=== PATIENT | female | born 1935 | race Caucasian/White ===

== ENCOUNTER 2017-01-04 21:41 | Inpatient (IN) | payer MEDICARE, OTHER ==
[~2017-01-04] VITALS: Ht 165.1 cm; Wt 65.3 kg
[2017-01-04] MEDS ORDERED: CEFEPIME 2GM/50 ML (PMX) 50 ML IVPB STA (22:08)
[2017-01-04] MEDS ORDERED: SOD CHLORIDE 0.9% 1,000 ML IV STA ×3 (22:08→23:17)
--- NOTE | 2017-01-04 22:22 | ERA ---
ER Documentation Chief Complaint Date/Time DATE: 01/04/17 TIME: 22:20 Chief Complaint ALOC x3 days per room mate, hx diabetes HPI This is 81-year-old female who is brought in by ambulance from home. The patient currently has a decreased mental status for the past 3 days. She was noted to have a heart rate of 08/09/1939 at home. On questioning the patient says she does not know why she is here but says she does not feel good. She will not elaborate on why she does not feel good. She says she is not in any pain. She is telling me she has not had any nausea vomiting diarrhea or headache or chest pain. She is extremely poor historian just lays there with minimal answering my questions but she is in no acute distress ROS All systems reviewed and are negative except as per history of present illness. Medications Home Meds Unable to Obtain Active Prescriptions or Reported Meds Allergies Allergies: Coded Allergies: No Known Allergy (Unverified , 01/04/17) PMhx/Soc History of Surgery: No Anesthesia Reaction: No Hx Neurological Disorder: No Hx Respiratory Disorders: No Hx Cardiac Disorders: No Hx Psychiatric Problems: No Hx Miscellaneous Medical Probl: Yes (diabetes) Hx Alcohol Use: No Hx Substance Use: No Hx Tobacco Use: Yes (quit) Smoking Status: Former smoker FmHx Family History: No coronary disease Physical Exam Vitals Vital Signs Date Time Temp Pulse Resp B/P Pulse Ox O2 Delivery O2 Flow Rate FiO2 01/05/17 03:45 98.2 124 16 128/67 99 Room Air 01/05/17 01:46 128 16 130/70 98 Room Air 01/05/17 00:15 98.1 123 20 124/67 99 Room Air 01/04/17 21:50 98.7 130 18 140/78 98 Physical Exam Const: Well-developed, well-nourished Head: Atraumatic, normocephalic Eyes: Normal Conjunctiva, PERRLA, EOMI, normal sclera, no nystagmus ENT: Normal External Ears, Nose and Mouth, moist mucus membranes. Neck: Full range of motion. No meningismus, no lymphadenopathy. Resp: Clear to auscultation bilaterally, no wheezing, rhonchi, rales Cardio: Tachycardia heart rate 127 no murmurs, S1 S2 present Abd: Soft, diffuse moderate tenderness most in the lower quadrants, non distended. Normal bowel sounds, no guarding or rebound, no pulsitile abdominal masses or bruits Skin: No petechiae or rashes, no ecchymosis , no maculopapular rash Back: No midline or flank tenderness Ext: No cyanosis, or edema, FROM x 4, normal inspection, neurovascularly intact x 4 Neur: Awake and alert, STR 5/5 x 4, sensation intact x 4, no focal findings, cerebellum intact Psych: Normal Mood and Affect Result Diagram: 01/04/17 2215 01/05/17 0330 Results 24 hrs Laboratory Tests Test 01/04/17 22:15 01/04/17 22:20 01/04/17 23:30 01/05/17 02:16 White Blood Count 11.110^3/ul Red Blood Count 4.5310^6/ul Hemoglobin 14.3g/dl Hematocrit 43.1% Mean Corpuscular Volume 95.1fl Mean Corpuscular Hemoglobin 31.6pg Mean Corpuscular Hemoglobin Concent 33.2g/dl Red Cell Distribution Width 12.3% Platelet Count 41712^3/UL Mean Platelet Volume 10.1fl Neutrophils % 82.2% Lymphocytes % 9.5% Monocytes % 6.8% Eosinophils % 0.0% Basophils % 0.1% Nucleated Red Blood Cells % 0.0/100WBC Neutrophils # 9.110^3/ul Lymphocytes # 1.110^3/ul Monocytes # 0.810^3/ul Eosinophils # 0.010^3/ul Basophils # 0.010^3/ul Nucleated Red Blood Cells # 0.010^3/ul Prothrombin Time 13.5Sec Prothrombin Time Ratio 1.1 INR International Normalized Ratio 1.03 Activated Partial Thromboplast Time 20.0Sec Sodium Level 130mmol/L Potassium Level 3.3mmol/L Chloride Level 103mmol/L Carbon Dioxide Level < 5mmol/L Anion Gap 25 Blood Urea Nitrogen 26mg/dl Creatinine 0.77mg/dl Glucose Level 367mg/dl Calcium Level 8.6mg/dl Total Bilirubin 0.3mg/dl Direct Bilirubin 0.00mg/dl Indirect Bilirubin 0.3mg/dl Aspartate Amino Transf (AST/SGOT) 13IU/L Alanine Aminotransferase (ALT/SGPT) 26IU/L Alkaline Phosphatase 70IU/L Troponin I < 0.012ng/ml Total Protein 7.2g/dl Albumin 4.7g/dl Globulin 2.50g/dl Albumin/Globulin Ratio 1.88 Lipase 23U/L Lactic Acid Level 1.3mmol/L Acetone Level (Chemistry) POSITIVE 1:1 Blood Gas Specimen Source Blood arterial Arterial Blood Date Drawn 01/05/2017 3:20:30 AM Arterial Blood pH (Temp corrected) 7.089 Arterial Blood pCO2 (Temp correct) 17.9mmhg Arterial Blood pO2 (Temp corrected) 108.6mmHG Arterial Blood HCO3 5.3mmol/L Arterial Blood Base Excess -22.6mmol/L Arterial Blood Oxygen Saturation 97.3mmHG Esequiel Test ACCEPTAB Arterial Blood Gas Puncture Site Right Radial Arterial Blood Carboxyhemoglobin 1.7% Arterial Blood Methemoglobin 0.3% Blood Gas A-a O2 Differential 19.7mmHg Oxyhemoglobin Percent 95.4% Total Hemoglobin 14.0g/dl Blood Gas Temperature 37.0C Blood Gas Modality ROOM AIR FiO2 21.0% Blood Gas Critical Value Read Back Kimi MOMIN MD Blood Gas Notified Whom AA Blood Gas Notified Time 01/05/2017 3:32:31 AM Test 01/05/17 03:30 Sodium Level 137mmol/L Potassium Level 3.4mmol/L Chloride Level 114mmol/L Carbon Dioxide Level 7mmol/L Anion Gap 19 Blood Urea Nitrogen 22mg/dl Creatinine 0.60mg/dl Glucose Level 296mg/dl Calcium Level 7.6mg/dl Current Medications Medications (Trade) Dose Ordered Sig/Sunil Route PRN Reason Start Time Stop Time Status Last Admin Dose Admin Sodium Chloride 1,000 ml @ 1,000 mls/hr Q1H STAT IV 01/04/17 22:08 01/04/17 23:07 DC 01/04/17 22:31 Cefepime HCl 50 ml @ 100 mls/hr ONCE STAT IVPB 01/04/17 22:08 01/04/17 22:37 DC 01/04/17 22:32 Vancomycin HCl 250 ml @ 125 mls/hr ONCE ONCE IVPB 01/04/17 22:30 01/05/17 00:29 DC 01/04/17 23:05 Sodium Chloride 1,000 ml @ 1,000 mls/hr Q1H STAT IV 01/04/17 23:17 01/05/17 00:16 DC 01/04/17 23:31 Sodium Chloride 1,000 ml @ 1,000 mls/hr Q1H STAT IV 01/04/17 23:17 01/05/17 00:16 DC 01/04/17 23:32 Sodium Chloride (NS) 100 ml @ ud STK-MED ONCE .ROUTE 01/05/17 00:18 01/05/17 00:19 DC Iohexol (Omnipaque 300mg/ ml) 150 ml STK-MED ONCE .ROUTE 01/05/17 00:18 01/05/17 00:19 DC Procedures/MDM PROCEDURE: CT abdomen and pelvis with intravenous contrast. CLINICAL INDICATION: Pain. TECHNIQUE: CT of the abdomen/pelvis was performed utilizing axial images with reconstructions in sagittal and coronal planes after uneventful administration of 100 cc Omnipaque 300. The administered radiation dose is CTDI 17 mGy, DLP 945 mGy-cm. COMPARISON: No pertinent prior examinations were submitted for comparison. FINDINGS: Visualized Chest: The visualized lung bases are clear. Abdomen: The liver, spleen, pancreas, gallbladder,and adrenal glands are unremarkable. The kidneys are without hydronephrosis. No definite urinary calculi are seen. There is no evidence of bowel obstruction. The appendix is normal. No intra- abdominal free air is seen. Some diverticula are noted along the sigmoid colon without evidence of diverticulitis. There is no evidence of intra-abdominal adenopathy or free fluid. A few scattered atherosclerotic calcifications are noted in the aorta and its branches. There is some motion artifact which limits evaluation of the mid abdomen. Pelvis: The urinary bladder is markedly distended. The uterus and ovaries are without enlargement. There is no pelvic adenopathy or free fluid. Osseous structures: Unremarkable. IMPRESSION: No acute findings. RPTAT: HIKT .Seven José MD, MD Date Time Electronically viewed and signed by .Seven José MD, on 01/05/2017 01:59 .T/ CC: МАРИЯ MOMIN DO PROCEDURE: Chest. CLINICAL INDICATION: Chest pain. TECHNIQUE: Single frontal view of the chest was obtained. COMPARISON: None. FINDINGS: The cardiac silhouette is magnified. The aortic arch is calcified. There is no focal consolidation, vascular congestion or pleural effusion. There is no pneumothorax. IMPRESSION: No evidence for active cardiopulmonary disease. Aortic atherosclerosis. .Mariano Peterson MD, Date Time Electronically viewed and signed by .Mariano Peterson MD, MD on 01/04/2017 23:20 .T/ CC: МАРИЯ MOMIN DO The patient is very acidotic with a CO2 of less than 5. Her acetone is 1-1 which is small. Lactic acid is normal at 1.3. Will repeat the BMP and get an ABG because does not make sense having a CO2 of less than 5 with a lactic acid of 1.3 Repeat shows a CO2 of 7. ABGs pH 7.089. Patient likely has DKA only treat accordingly with insulin drip and DKA protocol. We will admit to the ICU I spoke with Dr. Potter EKG: Rate/Rhythm: Sinus tachycardia heart rate 121 with a bifascicular block QRS, ST, QT: NORMAL ME, QRS, QT] Impression: Abnormal EKG: Rate/Rhythm: [Normal Sinus Rhythm,NL intervals] QRS, ST, QT: NORMAL ME, QRS, QT] Impression: [NORMAL EKG] Critical Care Time: 30 minutes Treatments/Evaluations: Close monitoring and treatment of unstable vital signs, cardiorespiratory, and neurologic status, while maintaining tight balance of fluid, respiratory, and cardiac interventions. This time includes discussing the case with the patient and the patient's family. This time does not include all procedures stated elsewhere in this record. This time also includes reviewing old records, labs and radiological studies. This time includes examining and re-examining the patient. Additionally, this time also includes arranging care with admitting and consulting physicians. Departure Diagnosis: Primary Impression: DKA (diabetic ketoacidoses) Qualified Code: E13.10 - Diabetic ketoacidosis without coma associated with other specified diabetes mellitus Condition: МАРИЯ Willis DO Jan 04, 2017 22:22
[2017-01-04] MEDS ORDERED: VANCOMYCIN 1 GM (PMX) 250 ML IVPB ONE (22:30)
[2017-01-04 22:37] LABS: ADD SCAN DIFF NO
[2017-01-04 22:56] LABS: BASOPHILS % 0.1 % (0.0-2.0); HEMATOCRIT 43.1 % (37.0-47.0); HEMOGLOBIN 14.3 g/dl (12.0-16.0); LYMPHOCYTES # 1.1 10^3/ul (0.8-2.9); LYMPHOCYTES % 9.5 % (15.0-51.0); MEAN CORPUSCULAR HEMOGLOBIN 31.6 pg (29.0-33.0); MEAN CORPUSCULAR HGB CONC 33.2 g/dl (32.0-37.0); MEAN CORPUSCULAR VOLUME 95.1 fl (82.0-101.0); MEAN PLATELET VOLUME 10.1 fl (7.4-10.4); MONOCYTE # 0.8 10^3/ul (0.3-0.9); MONOCYTES % 6.8 % (0.0-11.0); NEUTROPHIL # 9.1 10^3/ul (1.6-7.5); NEUTROPHILS % 82.2 % (39.0-77.0); PLATELET COUNT 250 10^3/UL (140-415); RED BLOOD COUNT 4.53 10^6/ul (4.20-5.40); RED CELL DISTRIBUTION WIDTH 12.3 % (11.5-14.5); WHITE BLOOD COUNT 11.1 10^3/ul (4.8-10.8)
[2017-01-04 23:01] LABS: INR 1.03; PROTIME 13.5 Sec (12.2-14.2); PT RATIO 1.1
[2017-01-04 23:04] LABS: ALANINE AMINOTRANSFERASE 26 IU/L (13-69); ALBUMIN 4.7 g/dl (3.3-4.9); ALBUMIN/GLOBULIN RATIO 1.88; ALKALINE PHOSPHATASE 70 IU/L (42-121); ASPARTATE AMINO TRANSFERASE 13 IU/L (15-46); BILIRUBIN,INDIRECT 0.3 mg/dl (0-1.1); BILIRUBIN,TOTAL 0.3 mg/dl (0.2-1.3); BLOOD UREA NITROGEN 26 mg/dl (7-20); CALCIUM 8.6 mg/dl (8.4-10.2); CHLORIDE 103 mmol/L (97-110); CREATININE 0.77 mg/dl (0.44-1.00); GLUCOSE 367 mg/dl (70-220); POTASSIUM 3.3 mmol/L (3.5-5.1); SODIUM 130 mmol/L (135-144); TOTAL PROTEIN 7.2 g/dl (6.1-8.1)
[2017-01-04 23:12] LABS: ANION GAP 25 (8-16)
[2017-01-04 23:15] LABS: CARBON DIOXIDE < 5 mmol/L (21-31)
[2017-01-04 23:16] LABS: TROPONIN-I < 0.012 ng/ml (0.00-0.12)
--- NOTE | 2017-01-04 23:20 | RADRPT ---
PROCEDURE: Chest. CLINICAL INDICATION: Chest pain. TECHNIQUE: Single frontal view of the chest was obtained. COMPARISON: None. FINDINGS: The cardiac silhouette is magnified. The aortic arch is calcified. There is no focal consolidation , vascular congestion or pleural effusion. There is no pneumothorax. IMPRESSION: No evidence for active cardiopulmonary disease. Aortic atherosclerosis. .Mariano Peterson MD, MD Date Time Electronically viewed and signed by .Mariano Peterson MD, on 01/04/2017 23:20 .T/
[2017-01-05] VITALS (15 sets, daily range): BP systolic 118–163; BP diastolic 62–105; PULSE 90–120; RESP 14–30; TEMP 98.4; Ht 165.1 cm; Wt 65.3 kg
[2017-01-05] MEDS ORDERED: IOHEXOL 300MG/ML 150 ML BTL ONE (00:18)
[2017-01-05] MEDS ORDERED: SOD CHLORIDE 0.9% 100 ML ONE (00:18)
--- NOTE | 2017-01-05 01:59 | RADRPT ---
PROCEDURE: CT abdomen and pelvis with intravenous contrast. CLINICAL INDICATION: Pain. TECHNIQUE: CT of the abdomen/pelvis was performed utilizing axial images with reconstructions in s agittal and coronal planes after uneventful administration of 100 cc Omnipaque 300. The administered radiation dose is CTDI 17 mGy, DLP 945 mGy-cm. COMPARISON: No pertinent prior examinations were submitted for comparison. FINDINGS: Visualized Chest: The visualized lung bases are clear. Abdomen: The liver, spleen, pancreas, gallbladder,and adrenal glands are unremarkable. The kidneys are without hydronephrosis. No definite urinary calculi are seen. There is no evidence of bowel obstruction. The appendix is normal. No intra-abdominal free air is seen. Some diverticula are noted along the sigmoid colon without evidence of diverticulitis. There is no evidence of intra-abdominal adenopathy or free fluid. A few scattered atherosclerotic c alcifications are noted in the aorta and its branches. There is some motion artifact which limits evaluation of the mid abdomen. Pelvis: The urinary bladder is markedly distended. The uterus and ovaries are without enlargement. There i s no pelvic adenopathy or free fluid. Osseous structures: Unremarkable. IMPRESSION: No acute findings. RPTAT: HIKT .Seven José MD, MD Date Time Electronically viewed and signed by .Seven José MD, MD on 01/05/2017 01:59 .T/
[2017-01-05 03:33] LABS: AADO2 Arterial 19.7 mmHg (7.0-24.0); Allen Test ACCEPTAB; Arterial Base Excess -22.6 mmol/L (-3.0-3); Arterial COHb 1.7 % (0.0-3.0); Arterial Fraction of Oxyhgb 95.4 % (93.0-99.0); Arterial HCO3 5.3 mmol/L (22.0-26.0); Arterial MetHb 0.3 % (0.0-1.5); MODE ROOM AIR
[2017-01-05 04:05] LABS: CALCIUM 7.6 mg/dl (8.4-10.2); CREATININE 0.6 mg/dl (0.44-1.00); POTASSIUM 3.4 mmol/L (3.5-5.1)
[2017-01-05] MEDS ORDERED: SOD CHLORIDE 0.9% 1,000 ML IV SCH (04:29)
[2017-01-05] MEDS ORDERED: DEXTROSE 50% 50 ML SYRINGE IV PRN ×6 (04:30→19:30)
[2017-01-05] MEDS ORDERED: INSULIN HUMAN REGULAR 100 UNIT in SOD CHLORIDE 0.9% 99 ML IV SCH ×3 (04:30→20:00)
[2017-01-05] MEDS ORDERED: ONDANSETRON 4 MG INJ IV PRN (04:30)
--- NOTE | 2017-01-05 04:57 | HP ---
Date/Time of Note Date/Time of Note DATE: 01/05/17 TIME: 04:43 Assessment/Plan VTE Prophylaxis VTE Prophylaxis Intervention: SCD's Assessment/Plan Chief Complaint/Hosp Course This is a 81 year old female being admitted to the ICU floor for: #1: Encephalopathy: metabolic vs. neurologic. Likely metabolic. Unable to obtain patient's history at this time secondary to patient's clinical status. Based on labs patient appears to be in possible DKA. Will treat for DKA. Received IV abx in the ED. Currently afebrile and no source of infection identified. Mild leukocytosis of 11. Will hold further abx for now and await blood and urine cultures. Check urinalysis and Urine drug screen. #2 Suspected DKA: Initial bicarb of 5 with repeat of 7. ABG pH 7.0/ PC02 17/ [id number]/HCOS 5. Glucose in the 300s. Will start patient on DKA protocol with IV fluids, insulin drip, and electrolyte repletion. Check a1c. Consult endocrine. #3Dvt and gi prophylaxis: scds, protonix. #4 social status: will consult social work to help with obtaining next of kin/ family contacts information and patient's medical information. Further treatment strategy will be implemented as per the clinical course. Problems: HPI/ROS Admit Date/Time Admit Date/Time Hx of Present Illness chief complaint: "feeling weak" This is 81-year-old female who is brought in by ambulance from home. The patient currently has a decreased mental status for the past 3 days. She was noted to by tachycardic at home. On questioning the patient says she does not know why she is here but says she does not feel good. She will not elaborate on why she does not feel good. She says she is not in any pain. She told the ED physician she has not had any nausea vomiting diarrhea or headache or chest pain. As per the ED physcian, she is a extremely poor historian just lays there with minimal answering my questions but she is in no acute distress allergies: nkda meds: unknown ROS Patient is a very poor historian. She just reports that she is tired. She denies chest pain, shortness of breath, abdominal pain, however she is somnolent and unable to give an accurate ROS. PMH/Family/Social Past Medical History unable to obtain secondary to patient's somnolence and clinical status Past Surgical History unable to obtain secondary to patient's somnolence and clinical status Family History Significant Family History: other (unable to obtain secondary to patient's somnolence and clinical status) Social History unable to obtain secondary to patient's somnolence and clinical status Smoking Status: Unknown if ever smoked Exam/Review of Systems Vital Signs Vitals Vital Signs Date Time Temp Pulse Resp B/P Pulse Ox O2 Delivery O2 Flow Rate FiO2 01/05/17 03:45 98.2 124 16 128/67 99 Room Air Exam Exam General: Patient is lying in bed somnolent but arousable. Patient is a poor historian HEENT: Atraumatic, normocephalic. The pupils are equal, round and reactive. Extraocular motor are intact, dry mucous membranes Neck: Supple with full range of motion. No rigidity or meningismus Chest: Nontender Lungs: Clear to auscultation bilaterally no crackles rales or wheezing Heart: Normal S1-S2, Regular rhythm and rate. No murmur, S3, or S4 no appreciable murmur Abdomen: Soft , nontender, nondistended , bowel sounds are present. No guarding no rebound tenderness , No masses or organomegaly. No costovertebral temporal angle mass Extremities: Normal to inspection, no edema no cyanosis Neurologic: Somnolent but arousable, unable to provide a proper history. Additional Comments PROCEDURE: CT abdomen and pelvis with intravenous contrast. CLINICAL INDICATION: Pain. TECHNIQUE: CT of the abdomen/pelvis was performed utilizing axial images with reconstructions in sagittal and coronal planes after uneventful administration of 100 cc Omnipaque 300. The administered radiation dose is CTDI 17 mGy, DLP 945 mGy-cm. COMPARISON: No pertinent prior examinations were submitted for comparison. FINDINGS: Visualized Chest: The visualized lung bases are clear. Abdomen: The liver, spleen, pancreas, gallbladder,and adrenal glands are unremarkable. The kidneys are without hydronephrosis. No definite urinary calculi are seen. There is no evidence of bowel obstruction. The appendix is normal. No intra- abdominal free air is seen. Some diverticula are noted along the sigmoid colon without evidence of diverticulitis. There is no evidence of intra-abdominal adenopathy or free fluid. A few scattered atherosclerotic calcifications are noted in the aorta and its branches. There is some motion artifact which limits evaluation of the mid abdomen. Pelvis: The urinary bladder is markedly distended. The uterus and ovaries are without enlargement. There is no pelvic adenopathy or free fluid. Osseous structures: Unremarkable. IMPRESSION: No acute findings. RPTAT: HIKT .Seven José MD, Date Time Electronically viewed and signed by .Seven José MD, on 01/05/2017 01:59 .T/ CC: МАРИЯ MOMIN DO PROCEDURE: Chest. CLINICAL INDICATION: Chest pain. TECHNIQUE: Single frontal view of the chest was obtained. COMPARISON: None. FINDINGS: The cardiac silhouette is magnified. The aortic arch is calcified. There is no focal consolidation, vascular congestion or pleural effusion. There is no pneumothorax. IMPRESSION: No evidence for active cardiopulmonary disease. Aortic atherosclerosis. .Mariano Peterson MD, MD Date Time Electronically viewed and signed by .Mariano Peterson MD, on 01/04/2017 23:20 .T/ CC: МАРИЯ MOMIN DO Labs Result Diagram: 01/04/17 2215 01/05/17 0330 Medications Medications Current Medications Insulin Human Regular 100 unit/ Sodium Chloride 100 ml @ 6.64 mls/hr TITRATE IV ; Start 01/05/17 at 04:30 Sodium Chloride (NS) 1,000 ml @ 125 mls/hr Q8H IV ; Start 01/05/17 at 04:29; Status UNV Ondansetron HCl (Zofran Inj) 4 mg Q6H PRN IV NAUSEA AND/OR VOMITING; Start at 04:30; Status UNV Dextrose (D50w Syringe) 50 ml Q15M PRN IV For BS 50 or less; Start 01/05/17 at 04:30; Status UNV Dextrose 25 ml 25 ml Q15M PRN IV BS between 50-70; Start 01/05/17 at 04:30; Status UNV Potassium Chloride/Sodium Chloride (KCl/NS) 1,010 ml @ 125 mls/hr Q8H5M IV ; Start 01/05/17 at 06:29; Stop 01/05/17 at 08:28; Status UNV Diagnostic Test (Pha) (Accu-Chek) 1 ea Q1H XX ; Start 01/05/17 at 04:30; Status UNV Insulin Glargine (Lantus) 10 unit QHS SC ; Start 01/05/17 at 21:00; Status UNV GREGORIO ESCOBAR Jan 05, 2017 04:55
[2017-01-05] MEDS: ACCU-CHEK XX SCH ×20 (05:17→23:30)
[2017-01-05 06:00] LABS: ADD UMIC YES; UR ASCORBIC ACID NEGATIVE (NEGATIVE); UR BILIRUBIN (Dip) NEGATIVE (NEGATIVE); UR BLOOD (Dip) 2+ mg/dL (NEGATIVE); UR CLARITY SLIGHTLY CLOUDY (CLEAR); UR COLOR YELLOW (YELLOW); UR GLUCOSE (Dip) 3+ mg/dL (NEGATIVE); UR KETONES (Dip) 2+ mg/dL (NEGATIVE); UR LEUKOCYTE ESTERASE (Dip) NEGATIVE Leu/ul (NEGATIVE); UR NITRITE (Dip) NEGATIVE (NEGATIVE); UR RBC 7 /HPF (0-5); UR SPECIFIC GRAVITY (Dip) 1.021 (1.003-1.030); UR TOTAL PROTEIN (Dip) 1+ mg/dl (NEGATIVE); UR UROBILINOGEN (Dip) NEGATIVE (NEGATIVE)
[2017-01-05] MEDS: INSULIN HUMAN REGULAR 100 UNIT in SOD CHLORIDE 0.9% 99 ML IV SCH ×2 (06:02→17:37)
[2017-01-05 06:14] LABS: PHOSPHORUS 2.2 mg/dl (2.5-4.9)
[2017-01-05 06:27] LABS: BARBITURATES Negative (NEGATIVE); BENZODIAZEPINES Negative (NEGATIVE); CANNABINOIDS Negative (NEGATIVE); COCAINE Negative (NEGATIVE); OPIATES Negative (NEGATIVE)
[2017-01-05] MEDS ORDERED: POTASSIUM CHLORIDE 20 MEQ in SOD CHLORIDE 0.9% 1,000 ML IV SCH (06:29)
[2017-01-05] MEDS ORDERED: GLUCOSE GEL 15 GRAM TUBE BUCCAL PRN (06:30)
[2017-01-05] MEDS ORDERED: GLUCOSE GEL 15 GRAM TUBE PO PRN ×2 (06:30)
[2017-01-05] MEDS ORDERED: NS + KCL 20 MEQ 1,000 ML IV SCH (06:30)
[2017-01-05] MEDS ORDERED: GLUCAGON 1 MG INJ IM PRN (06:30)
[2017-01-05] MEDS: SOD CHLORIDE 0.9% 1,000 ML IV SCH ×2 (07:49→16:00)
[2017-01-05 07:59] LABS: CALCIUM 8.3 mg/dl (8.4-10.2); CREATININE 0.61 mg/dl (0.44-1.00); POTASSIUM 4.7 mmol/L (3.5-5.1)
[2017-01-05] MEDS: DEXTROSE 5%-0.45% NACL 1,000 ML IV SCH ×2 (09:07→17:18)
[2017-01-05 12:30] LABS: CALCIUM 8.5 mg/dl (8.4-10.2); CREATININE 0.53 mg/dl (0.44-1.00)
[2017-01-05 12:39] LABS: POTASSIUM 2.8 mmol/L (3.5-5.1)
[2017-01-05] MEDS ORDERED: POTASSIUM CHLORIDE 250 ML IVPB SCH (13:00)
--- NOTE | 2017-01-05 14:28 | CONS ---
Date/Time of Note Date/Time of Note DATE: 01/05/17 TIME: 14:24 Assessment/Plan Assessment/Plan Problems: (1) Dehydration Status: Acute Comment: She has been partially rehydrated. Getting give her some more fluids especially lactated Ringer's to help avoid hyperchloremic metabolic acidosis. She is receiving dextrose with the IV insulin infusion which should help. As she gets more awake we should be able to gather more information will have to re -interviewer completely tomorrow. (2) DKA (diabetic ketoacidoses) Status: Acute Comment: This is acute DKA. Somewhat unusual patient of this age and looks like it is can be secondary cause. She has been pancultured as of this time is on antibiotics appropriately. Additionally after check for cardiac enzymes Qualifiers: Qualified Code: E13.10 - Diabetic ketoacidosis without coma associated with other specified diabetes mellitus (3) Encephalopathy acute Status: Acute Comment: Workup for reversible causes Consultation Date/Type/Reason Admit Date/Time 01/05/2017 Date of Consultation: Jan 05, 2017 Type of Consultation: Endocrinology Reason for Consultation DKA Referring Provider: WAN YI Hx of Present Illness 81-year-old single female who lives with roommates reportedly. Patient been not feeling well and had decrease in mental status over 3 days. She is brought in by [facility] to the emergency room. Her ability to give information is extremely limited. Patient is in severe acidosis with an anion gap acidosis and DKA. The patient does report a 10 year history of diabetes. She is unable to state who her physician is what her medications are. She did identify her pharmacy as [facility] however that institution is out of business and there is no forwarding number. 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 Exam/Review of Systems Vital Signs Vitals Vital Signs Date Time Temp Pulse Resp B/P Pulse Ox O2 Delivery O2 Flow Rate FiO2 01/05/17 14:00 17 129/83 99 Room Air 01/05/17 13:00 101 01/05/17 12:15 97.6 Intake and Output 01/04/17 01/04/17 01/05/17 15:00 23:00 07:00 Output Total 1500 ml Balance -1500 ml Exam Drowsy female with very dry mucous membranes Head: atraumatic, normocephalic Eyes: EOMI, nl conjunctiva, nl lids, nl sclera ENMT: nl external ears & nose, other (Very dry mucous minimal) Neck: non-tender, supple Respiratory: clear to auscultation, normal air movement Cardiovascular: nl pulses, regular rate and rhythm Gastrointestinal: nl liver, spleen, non-tender, soft Extremities: normal pulses Skin: other (Dry with tenting) Results Result Diagram: 01/04/17 2215 01/05/17 1150 Results 24 hrs Laboratory Tests Test 01/04/17 22:15 01/04/17 22:20 01/04/17 23:30 01/05/17 02:16 White Blood Count 11.1 H Red Blood Count 4.53 Hemoglobin 14.3 Hematocrit 43.1 Mean Corpuscular Volume 95.1 Mean Corpuscular Hemoglobin 31.6 Mean Corpuscular Hemoglobin Concent 33.2 Red Cell Distribution Width 12.3 Platelet Count 250 Mean Platelet Volume 10.1 Neutrophils % 82.2 H Lymphocytes % 9.5 L Monocytes % 6.8 Eosinophils % 0.0 Basophils % 0.1 Nucleated Red Blood Cells % 0.0 Neutrophils # 9.1 H Lymphocytes # 1.1 Monocytes # 0.8 Eosinophils # 0.0 Basophils # 0.0 Nucleated Red Blood Cells # 0.0 Prothrombin Time 13.5 Prothrombin Time Ratio 1.1 INR International Normalized Ratio 1.03 Activated Partial Thromboplast Time 20.0 L Sodium Level 130 L Potassium Level 3.3 L Chloride Level 103 Carbon Dioxide Level < 5 *L Anion Gap 25 H Blood Urea Nitrogen 26 H Creatinine 0.77 Glucose Level 367 H Calcium Level 8.6 Total Bilirubin 0.3 Direct Bilirubin 0.00 Indirect Bilirubin 0.3 Aspartate Amino Transf (AST/SGOT) 13 L Alanine Aminotransferase (ALT/SGPT) 26 Alkaline Phosphatase 70 Troponin I < 0.012 Total Protein 7.2 Albumin 4.7 Globulin 2.50 Albumin/Globulin Ratio 1.88 Lipase 23 Lactic Acid Level 1.3 Acetone Level (Chemistry) POSITIVE 1:1 H Blood Gas Specimen Source Blood arterial Arterial Blood Date Drawn 01/05/2017 3:20:30 AM Arterial Blood pH (Temp corrected) 7.089 *L Arterial Blood pCO2 (Temp correct) 17.9 L Arterial Blood pO2 (Temp corrected) 108.6 H Arterial Blood HCO3 5.3 *L Arterial Blood Base Excess -22.6 L Arterial Blood Oxygen Saturation 97.3 Esequiel Test ACCEPTAB Arterial Blood Gas Puncture Site Right Radial Arterial Blood Carboxyhemoglobin 1.7 Arterial Blood Methemoglobin 0.3 Blood Gas A-a O2 Differential 19.7 Oxyhemoglobin Percent 95.4 Total Hemoglobin 14.0 Blood Gas Temperature 37.0 Blood Gas Modality ROOM AIR FiO2 21.0 Blood Gas Critical Value Read Back Kimi MOMIN MD Blood Gas Notified Whom AA Blood Gas Notified Time 01/05/2017 3:32:31 AM Test 01/05/17 03:30 01/05/17 05:16 01/05/17 05:20 01/05/17 07:00 Sodium Level 137 138 Potassium Level 3.4 L 4.7 Chloride Level 114 H 116 H Carbon Dioxide Level 7 *L 6 *L Anion Gap 19 H 21 H Blood Urea Nitrogen 22 H 21 H Creatinine 0.60 0.61 Glucose Level 296 H 284 H Fasting Glucose 296 H Calcium Level 7.6 L 8.3 L Phosphorus Level 2.2 L Bedside Glucose 286 H Urine Color YELLOW Urine Clarity SLIGHTLY CLOUDY A Urine pH 5.0 Urine Specific Lorraine 1.021 Urine Ketones 2+ H Urine Nitrite NEGATIVE Urine Bilirubin NEGATIVE Urine Urobilinogen NEGATIVE Urine Leukocyte Esterase NEGATIVE Urine Microscopic RBC 7 H Urine Microscopic WBC 1 Urine Hemoglobin 2+ H Urine Glucose 3+ H Urine Total Protein 1+ H Urine Opiates Screen Negative Urine Barbiturates Negative Urine Amphetamines Screen Negative Urine Benzodiazepines Screen Negative Urine Cocaine Screen Negative Urine Cannabinoids Negative Hemoglobin A1c 10.6 H Lactic Acid Level 1.4 Test 01/05/17 07:04 01/05/17 07:58 01/05/17 08:57 01/05/17 09:56 Bedside Glucose 305 H 229 H 202 181 Test 01/05/17 10:55 01/05/17 11:50 01/05/17 12:35 01/05/17 13:42 Bedside Glucose 235 H 211 217 190 Sodium Level 141 Potassium Level 2.8 *L Chloride Level 118 H Carbon Dioxide Level 10 L Anion Gap 16 Blood Urea Nitrogen 21 H Creatinine 0.53 Glucose Level 234 H Calcium Level 8.5 Medications Medications Current Medications Ondansetron HCl (Zofran Inj) 4 mg Q6H PRN IV NAUSEA AND/OR VOMITING; Start at 04:30 Dextrose (D50w Syringe) 50 ml Q15M PRN IV For BS 50 or less; Start 01/05/17 at 04:30 Dextrose (D50w Syringe) 25 ml Q15M PRN IV BS between 50-70; Start 01/05/17 at 04:30 Diagnostic Test (Pha) (Accu-Chek) 1 ea Q1H XX Last administered on 01/05/17 12 :01; Admin Dose 1 EA; Start 01/05/17 at 04:30 Insulin Glargine (Lantus) 10 unit QHS SC ; Start 01/05/17 at 21:00 Miscellaneous Information 1 ea NOTE XX ; Start 01/05/17 at 06:30 Glucose (Glutose) 15 gm Q15M PRN PO DECREASED GLUCOSE; Start 01/05/17 at 06:30 Glucose (Glutose) 22.5 gm Q15M PRN PO DECREASED GLUCOSE; Start 01/05/17 at 06: 30 Dextrose (D50w Syringe) 25 ml Q15M PRN IV DECREASED GLUCOSE; Start 01/05/17 at 06:30 Dextrose (D50w Syringe) 50 ml Q15M PRN IV DECREASED GLUCOSE; Start 01/05/17 at 06:30 Glucagon (Glucagen) 1 mg Q15M PRN IM DECREASED GLUCOSE; Start 01/05/17 at 06:30 Glucose 15 gm 15 gm Q15M PRN BUCCAL DECREASED GLUCOSE; Start 01/05/17 at 06:30 Sodium Chloride 1,000 ml @ 125 mls/hr Q8H IV Last administered on 01/05/17 07 :49; Admin Dose 125 MLS/HR; Start 01/05/17 at 08:00 Dextrose/Sodium Chloride 1,000 ml @ 125 mls/hr Q8H IV Last administered on 09:07; Admin Dose 125 MLS/HR; Start 01/05/17 at 09:30 Potassium Chloride (KCl 40 MEQ/250 ML NS) 250 ml @ 62.5 mls/hr ONCE IVPB Last administered on 01/05/17t 13:46; Admin Dose 62.5 MLS/HR; Start 01/05/17 at 13:00 ; Stop 01/05/17 at 16:59 Potassium Chloride (Klor-Con 20) 40 meq TID PO ; Start 01/05/17 at 21:00; Stop 01/06/17 at 20:59; Status NELSON NORRIS MD Jan 05, 2017 14:28
[2017-01-05] MEDS ORDERED: CYANOCOBALAMIN 1000 MCG INJ IM ONE (14:30)
[2017-01-05] MEDS ORDERED: LACTATED RINGER'S 500 ML IV ONE (14:30)
[2017-01-05] MEDS: THIAMINE 100 MG TAB PO SCH (14:54)
[2017-01-05 15:16] LABS: TROPONIN-I 0.016 ng/ml (0.00-0.12)
[2017-01-05 15:31] LABS: TROPONIN-I < 0.012 ng/ml (0.00-0.12)
[2017-01-05 18:06] LABS: CALCIUM 8.5 mg/dl (8.4-10.2); CREATININE 0.45 mg/dl (0.44-1.00)
[2017-01-05 18:10] LABS: POTASSIUM 2.4 mmol/L (3.5-5.1)
[2017-01-05] MEDS: POTASSIUM CHLORIDE 250 ML IVPB SCH ×2 (19:05→22:46)
[2017-01-05] MEDS ORDERED: ACCU-CHEK XX SCH (19:30)
[2017-01-05] MEDS ORDERED: INSULIN HUMAN REGULAR 100 UNIT in SOD CHLORIDE 0.9% 99 ML IV STA (19:48)
[2017-01-05] MEDS ORDERED: POTASSIUM CHLORIDE (SR) 20 MEQ TAB PO SCH (21:00)
[2017-01-05] MEDS: INSULIN GLARGINE [LANtus] 3 ML PEN SC SCH (21:06)
[2017-01-06] VITALS (30 sets, daily range): BP systolic 120–174; BP diastolic 65–91; PULSE 86–118; RESP 16–26
[2017-01-06] MEDS: DEXTROSE 5%-0.45% NACL 1,000 ML IV SCH (01:19)
[2017-01-06] MEDS: ACCU-CHEK XX SCH ×10 (01:20→13:33)
[2017-01-06 03:24] LABS: CALCIUM 8.7 mg/dl (8.4-10.2); CREATININE 0.42 mg/dl (0.44-1.00); POTASSIUM 3.2 mmol/L (3.5-5.1)
[2017-01-06] MEDS ORDERED: SOD CHLORIDE 0.9% 1,000 ML IV SCH (04:00)
[2017-01-06] MEDS ORDERED: Insulin NOVOLOG SS MILD Algorithm (NPO/TPN/ENTERAL FEEDS) SC SCH (05:00)
[2017-01-06] MEDS ORDERED: POTASSIUM CHLORIDE 250 ML IVPB ONE (05:00)
[2017-01-06] MEDS ORDERED: INSULIN ASPART [NOVOLOG] 3 ML PEN SC SCH (05:00)
[2017-01-06] MEDS ORDERED: DEXTROSE 50% 50 ML SYRINGE IV PRN ×2 (06:30)
[2017-01-06] MEDS ORDERED: INSULIN HUMAN REGULAR 100 UNIT in SOD CHLORIDE 0.9% 99 ML IV SCH (06:30)
[2017-01-06 06:33] LABS: BASOPHILS % 0.1 % (0.0-2.0); EOSINOPHILS % 0.1 % (0.0-7.0); HEMATOCRIT 34.7 % (37.0-47.0); HEMOGLOBIN 12.4 g/dl (12.0-16.0); LYMPHOCYTES # 1.3 10^3/ul (0.8-2.9); LYMPHOCYTES % 9.8 % (15.0-51.0); MEAN CORPUSCULAR HEMOGLOBIN 31.7 pg (29.0-33.0); MEAN CORPUSCULAR HGB CONC 35.7 g/dl (32.0-37.0); MEAN CORPUSCULAR VOLUME 88.7 fl (82.0-101.0); MEAN PLATELET VOLUME 9.4 fl (7.4-10.4); MONOCYTE # 1.2 10^3/ul (0.3-0.9); NEUTROPHIL # 10.4 10^3/ul (1.6-7.5); NEUTROPHILS % 80.5 % (39.0-77.0); PLATELET COUNT 190 10^3/UL (140-415); RED BLOOD COUNT 3.91 10^6/ul (4.20-5.40); RED CELL DISTRIBUTION WIDTH 12.5 % (11.5-14.5); WHITE BLOOD COUNT 12.9 10^3/ul (4.8-10.8)
[2017-01-06 06:50] LABS: ALBUMIN 3.1 g/dl (3.3-4.9); ALBUMIN/GLOBULIN RATIO 1.4; BILIRUBIN,INDIRECT 0.7 mg/dl (0-1.1); BILIRUBIN,TOTAL 0.7 mg/dl (0.2-1.3); CALCIUM 8.5 mg/dl (8.4-10.2); CREATININE 0.43 mg/dl (0.44-1.00); POTASSIUM 3.3 mmol/L (3.5-5.1); TOTAL PROTEIN 5.3 g/dl (6.1-8.1)
[2017-01-06 06:52] LABS: CHOL/HDL RATIO 5.1 RATIO; MAGNESIUM 1.8 mg/dl (1.7-2.5)
[2017-01-06 07:15] LABS: THYROID STIMULATING HORMONE 0.397 MIU/L (0.465-4.680)
[2017-01-06 07:26] LABS: ADD SCAN DIFF NO
[2017-01-06] MEDS: D5W + KCL 20 MEQ 1,000 ML IV SCH ×2 (07:37→16:29)
[2017-01-06] MEDS: THIAMINE 100 MG TAB PO SCH (08:59)
[2017-01-06] MEDS: POTASSIUM CHLORIDE 50 ML IVPB PRN ×2 (09:35→11:54)
[2017-01-06] MEDS ORDERED: hydrALAzine 20 MG INJ IV PRN (10:00)
--- NOTE | 2017-01-06 10:05 | PN ---
Date/Time of Note Date/Time of Note DATE: 01/06/17 TIME: 10:03 Assessment/Plan VTE Prophylaxis VTE Prophylaxis Intervention: SCD's Lines/Catheters IV C[facility]ter Type [facility]from [facility]): Peripheral IV Urinary Cath still in place: Yes Reason Cath still needed: other (indicate) Assessment/Plan Chief Complaint/Hosp Course 1. Diabetic ketoacidosis. On insulin drip. Being followed by endocrinology. Etiology for DKA could be probably secondary to medication noncompliance. Shirley cultures have been negative. No evidence of any underlying infectious process. 2. Diabetes mellitus. Probably type II. Hemoglobin A1c 10.6. Glycemic management as per endocrinology. 3. Acute encephalopathy. Probably toxic metabolic. The patient's mental status have been improving. Monitor. 4. Dyslipidemia. Elevated total cholesterol and suboptimal LDL. Will start the patient on statins. 5. Hypokalemia. Replete. 6. Hypophosphatemia. Replete. 7. Fluids, electrolytes, and nutrition. N.p.o. Continue IV hydration. 8. DVT prophylaxis. Bilateral sequential compression devices. 9. Gastrointestinal prophylaxis. Proton pump inhibitors. 10. Plan. Weaning off insulin drip as per endocrinology. Continue ICU monitoring. Case discussed with Dr. Emmanuel. Critical care time: 35 minutes. Problems: Subjective 24 Hr Interval Summary Free Text/Dictation The patient is more awake and alert today. Patient continues to be forgetful. Remains on insulin drip. Exam/Review of Systems Vital Signs Vitals Vital Signs Date Time Temp Pulse Resp B/P Pulse Ox O2 Delivery O2 Flow Rate FiO2 01/06/17 09:00 95 20 137/85 97 Room Air 01/06/17 08:00 97.9 Intake and Output 01/05/17 01/05/17 01/06/17 15:00 23:00 07:00 Intake Total 797.92 ml 2463.12 ml 817.06 ml Output Total 2375 ml 785 ml 310 ml Balance -1577.08 ml 1678.12 ml 507.06 ml Exam General: Adequately build 81 year-old female lying in bed in no apparent distress. HEENT: Normocephalic, atraumatic. Eyes: Anicteric sclerae, conjunctivae clear. ENT: Nasal septum midline, oral mucosa moist. Neck supple, no JVD noticed. Respiratory: Bilaterally clear breath sounds. No use of accessory muscles of respiration. No adventitious breath sounds. Cardiovascular: S1, S2 heard. No murmurs or gallops. Abdomen: Soft, nontender, and nondistended. Bowel sounds positive in all 4 quadrants. Genitourinary: Deferred. Extremities: No cyanosis, no clubbing, no edema. Peripheral pulses palpable. Neurologic: Cranial nerves II through XII grossly intact. The patient is awake and alert. Oriented 2. Periods of confusion. Skin: Normal skin turgor. No skin rashes. Results Result Diagram: 01/06/1761801/06/17 06 Results 24 hrs Laboratory Tests Test 01/05/17 10:55 01/05/17 11:50 01/05/17 12:35 01/05/17 13:42 Bedside Glucose 235 H 211 217 190 Sodium Level 141 Potassium Level 2.8 *L Chloride Level 118 H Carbon Dioxide Level 10 L Anion Gap 16 Blood Urea Nitrogen 21 H Creatinine 0.53 Glucose Level 234 H Calcium Level 8.5 Test 01/05/17 14:30 01/05/17 14:34 01/05/17 15:34 01/05/17 17:30 Troponin I < 0.012 Vitamin B12 Level > 1000 H Free Thyroxine 1.39 Rapid Plasma Reagin NONREACTIVE Hepatitis B Surface Antigen NEGATIVE Hepatitis C Antibody NEGATIVE Bedside Glucose 211 162 Sodium Level 139 Potassium Level 2.4 *L Chloride Level 116 H Carbon Dioxide Level 15 L Anion Gap 10 # Blood Urea Nitrogen 18 Creatinine 0.45 Glucose Level 156 Calcium Level 8.5 Test 01/05/17 17:35 01/05/17 18:27 01/05/17 19:34 01/05/17 20:42 Bedside Glucose 128 110 124 108 Test 01/05/17 21:03 01/05/17 21:43 01/05/17 22:45 01/05/17 23:41 Bedside Glucose 93 108 121 114 Test 01/06/17 00:42 01/06/17 01:31 01/06/17 02:45 01/06/17 02:47 Bedside Glucose 116 104 107 Sodium Level 141 Potassium Level 3.2 L Chloride Level 120 H Carbon Dioxide Level 16 L Anion Gap 8 Blood Urea Nitrogen 16 Creatinine 0.42 L Glucose Level 116 # Calcium Level 8.7 Test 01/06/17 05:38 01/06/17 06:19 01/06/17 06:35 01/06/17 07:33 Bedside Glucose 186 182 172 White Blood Count 12.9 H Red Blood Count 3.91 L Hemoglobin 12.4 Hematocrit 34.7 L Mean Corpuscular Volume 88.7 Mean Corpuscular Hemoglobin 31.7 Mean Corpuscular Hemoglobin Concent 35.7 Red Cell Distribution Width 12.5 Platelet Count 190 # Mean Platelet Volume 9.4 Neutrophils % 80.5 H Lymphocytes % 9.8 L Monocytes % 9.0 Eosinophils % 0.1 Basophils % 0.1 Nucleated Red Blood Cells % 0.0 Neutrophils # 10.4 H Lymphocytes # 1.3 Monocytes # 1.2 H Eosinophils # 0.0 Basophils # 0.0 Nucleated Red Blood Cells # 0.0 Sodium Level 140 Potassium Level 3.3 L Chloride Level 116 H Carbon Dioxide Level 16 L Anion Gap 11 Blood Urea Nitrogen 15 Creatinine 0.43 L Glucose Level 187 Calcium Level 8.5 Phosphorus Level 0.8 #L Magnesium Level 1.8 Total Bilirubin 0.7 Direct Bilirubin 0.00 Indirect Bilirubin 0.7 Aspartate Amino Transf (AST/SGOT) 17 Alanine Aminotransferase (ALT/SGPT) 23 Alkaline Phosphatase 52 Total Protein 5.3 #L Albumin 3.1 #L Globulin 2.20 Albumin/Globulin Ratio 1.40 Triglycerides Level 148 Cholesterol Level 204 H LDL Cholesterol, Calculated 134 HDL Cholesterol 40 Cholesterol/HDL Ratio 5.1 Thyroid Stimulating Hormone (TSH) 0.397 L Test 01/06/17 08:38 01/06/17 09:38 Bedside Glucose 141 172 Medications Medications Current Medications Ondansetron HCl (Zofran Inj) 4 mg Q6H PRN IV NAUSEA AND/OR VOMITING; Start at 04:30 Insulin Glargine (Lantus) 10 unit QHS SC Last administered on 01/05/17t 21:06; Admin Dose 10 UNIT; Start 01/05/17 at 21:00 Miscellaneous Information 1 ea NOTE XX ; Start 01/05/17 at 06:30 Glucose (Glutose) 15 gm Q15M PRN PO DECREASED GLUCOSE; Start 01/05/17 at 06:30 Glucose (Glutose) 22.5 gm Q15M PRN PO DECREASED GLUCOSE; Start 01/05/17 at 06: 30 Dextrose (D50w Syringe) 25 ml Q15M PRN IV DECREASED GLUCOSE; Start 01/05/17 at 06:30 Dextrose (D50w Syringe) 50 ml Q15M PRN IV DECREASED GLUCOSE; Start 01/05/17 at 06:30 Glucagon (Glucagen) 1 mg Q15M PRN IM DECREASED GLUCOSE; Start 01/05/17 at 06:30 Glucose (Glutose) 15 gm Q15M PRN BUCCAL DECREASED GLUCOSE; Start 01/05/17 at 06 :30 Thiamine HCl 100 mg 100 mg DAILY PO Last administered on 01/06/17 08:59; Admin Dose 100 MG; Start 01/05/17 at 14:30; Stop 01/09/17 at 14:29 Potassium Chloride/Dextrose (D5W + KCl 20 Meq) 1,000 ml @ 100 mls/hr Q10H IV Last administered on 01/06/17 07:37; Admin Dose 100 MLS/HR; Start 01/06/17 at 07:00 Dextrose (D50w Syringe) 50 ml Q15M PRN IV For BS 50 or less; Start 01/06/17 at 06:30 Dextrose (D50w Syringe) 25 ml Q15M PRN IV BS between 50-70; Start 01/06/17 at 06:30 Diagnostic Test (Pha) 1 ea 1 ea Q1H XX Last administered on 01/06/17 09:38; Admin Dose 1 EA; Start 01/06/17 at 06:30 Potassium Phosphate/Sodium Chloride (K Phos (Mm)/NS) 260 ml @ 65 mls/hr ONCE ONCE IVPB ; Start 01/06/17 at 10:00; Stop 01/06/17 at 13:59; Status MINH ZAMORANO NP Jan 06, 2017 10:05
[2017-01-06] MEDS ORDERED: POTASSIUM PHOSPHATE 30 MM in SOD CHLORIDE 0.9% 250 ML IVPB ONE (11:30)
[2017-01-06 12:03] LABS: MICROALBUMIN 4.2 mg/dL
[2017-01-06 13:51] LABS: CALCIUM 8.1 mg/dl (8.4-10.2); CREATININE 0.43 mg/dl (0.44-1.00)
--- NOTE | 2017-01-06 14:06 | CONS ---
Date/Time of Note Date/Time of Note DATE: 01/06/17 TIME: 14:00 Assessment/Plan Assessment/Plan Chief Complaint/Hosp Course 81-year-old single female, information gathered from [facility] as a pharmacy is that her physician is Dr. Rancho Hurley. Her outpatient regimen has recently been switched from nateglinide 120 with each meal 2 Jardiance 10 mg a day. She is also on trazodone 50-200 mg nightly as needed. Problems: (1) Diabetes mellitus type 2 in nonobese Status: Chronic Comment: She is a long-term diabetic. She came in with DKA after having been treated with SGL T2 drug. This is unknown but rare complication of this drug class. As such we should not use this drug class in this individual patient. I will give her low-dose metformin and titrate to effect. She will still be on insulin for the time being although sending her home with insulin may be a little bit adventurous. 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 She lives independently and has roommates. They however are not direct relatives and as such third degree of support has appropriate limitations (3) DKA (diabetic ketoacidoses) Status: Resolved Comment: Resolved. Take the patient off insulin drip get her prepped for coming out of the ICU Qualifiers: Diabetes mellitus type: other specified (including JAIRON) Diabetes mellitus complication detail: without coma Qualified Code: E13.10 - Diabetic ketoacidosis without coma associated with other specified diabetes mellitus Consultation Date/Type/Reason Admit Date/Time Jan 05, 2017 at 04:29 Initial Consult Date 01/05/17 Type of Consultation: Endocrinology Reason for Consultation Diabetes mellitus type 2; DKA. Referring Provider: WAN YI 24 HR Interval Summary Free Text/Dictation Patient is more awake and alert. She has no idea who her doctors are but was able to tell me her pharmacy. [facility] in [place] [place]. Constitutional: no complaints (Denies fevers chills or sweats) Detailed Summary Respiratory: no complaints Cardiovascular: no complaints Gastrointestinal: no complaints Exam/Review of Systems Vital Signs Vitals Vital Signs Date Time Temp Pulse Resp B/P Pulse Ox O2 Delivery O2 Flow Rate FiO2 01/06/17 13:30 95 23 138/70 98 Room Air 01/06/17 12:00 98.3 Intake and Output 01/05/17 01/05/17 01/06/17 15:00 23:00 07:00 Intake Total 797.92 ml 2463.12 ml 817.06 ml Output Total 2375 ml 785 ml 410 ml Balance -1577.08 ml 1678.12 ml 407.06 ml Exam Oriented to person and place not to time Constitutional: alert Neck: non-tender, supple Respiratory: clear to auscultation, normal air movement Cardiovascular: nl pulses, regular rate and rhythm Results Result Diagram: 01/06/17 0619 01/06/17 1325 Results 24 hrs Laboratory Tests Test 01/05/17 14:30 01/05/17 14:34 01/05/17 15:34 01/05/17 17:30 Troponin I < 0.012 Vitamin B12 Level > 1000 H Free Thyroxine 1.39 Rapid Plasma Reagin NONREACTIVE Hepatitis B Surface Antigen NEGATIVE Hepatitis C Antibody NEGATIVE Bedside Glucose 211 162 Sodium Level 139 Potassium Level 2.4 *L Chloride Level 116 H Carbon Dioxide Level 15 L Anion Gap 10 # Blood Urea Nitrogen 18 Creatinine 0.45 Glucose Level 156 Calcium Level 8.5 Test 01/05/17 17:35 01/05/17 18:27 01/05/17 19:34 01/05/17 20:42 Bedside Glucose 128 110 124 108 Test 01/05/17 21:03 01/05/17 21:43 01/05/17 22:45 01/05/17 23:41 Bedside Glucose 93 108 121 114 Test 01/06/17 00:42 01/06/17 01:31 01/06/17 02:45 01/06/17 02:47 Bedside Glucose 116 104 107 Sodium Level 141 Potassium Level 3.2 L Chloride Level 120 H Carbon Dioxide Level 16 L Anion Gap 8 Blood Urea Nitrogen 16 Creatinine 0.42 L Glucose Level 116 # Calcium Level 8.7 Test 01/06/17 05:38 01/06/17 06:19 01/06/17 06:35 01/06/17 07:33 Bedside Glucose 186 182 172 White Blood Count 12.9 H Red Blood Count 3.91 L Hemoglobin 12.4 Hematocrit 34.7 L Mean Corpuscular Volume 88.7 Mean Corpuscular Hemoglobin 31.7 Mean Corpuscular Hemoglobin Concent 35.7 Red Cell Distribution Width 12.5 Platelet Count 190 # Mean Platelet Volume 9.4 Neutrophils % 80.5 H Lymphocytes % 9.8 L Monocytes % 9.0 Eosinophils % 0.1 Basophils % 0.1 Nucleated Red Blood Cells % 0.0 Neutrophils # 10.4 H Lymphocytes # 1.3 Monocytes # 1.2 H Eosinophils # 0.0 Basophils # 0.0 Nucleated Red Blood Cells # 0.0 Sodium Level 140 Potassium Level 3.3 L Chloride Level 116 H Carbon Dioxide Level 16 L Anion Gap 11 Blood Urea Nitrogen 15 Creatinine 0.43 L Glucose Level 187 Calcium Level 8.5 Phosphorus Level 0.8 #L Magnesium Level 1.8 Total Bilirubin 0.7 Direct Bilirubin 0.00 Indirect Bilirubin 0.7 Aspartate Amino Transf (AST/SGOT) 17 Alanine Aminotransferase (ALT/SGPT) 23 Alkaline Phosphatase 52 Total Protein 5.3 #L Albumin 3.1 #L Globulin 2.20 Albumin/Globulin Ratio 1.40 Triglycerides Level 148 Cholesterol Level 204 H LDL Cholesterol, Calculated 134 HDL Cholesterol 40 Cholesterol/HDL Ratio 5.1 Thyroid Stimulating Hormone (TSH) 0.397 L Test 01/06/17 08:38 01/06/17 09:38 01/06/17 10:49 01/06/17 11:44 Bedside Glucose 141 172 125 120 Test 01/06/17 12:02 01/06/17 12:51 01/06/17 13:25 01/06/17 13:28 Bedside Glucose 96 78 152 Sodium Level 130 L Potassium Level 4.0 Chloride Level 108 Carbon Dioxide Level 17 L Anion Gap 9 Blood Urea Nitrogen 13 Creatinine 0.43 L Glucose Level 121 # Calcium Level 8.1 L Medications Medications Current Medications Ondansetron HCl (Zofran Inj) 4 mg Q6H PRN IV NAUSEA AND/OR VOMITING; Start at 04:30 Insulin Glargine (Lantus) 10 unit QHS SC Last administered on 01/05/17t 21:06; Admin Dose 10 UNIT; Start 01/05/17 at 21:00 Miscellaneous Information 1 ea NOTE XX ; Start 01/05/17 at 06:30 Glucose (Glutose) 15 gm Q15M PRN PO DECREASED GLUCOSE; Start 01/05/17 at 06:30 Glucose (Glutose) 22.5 gm Q15M PRN PO DECREASED GLUCOSE; Start 01/05/17 at 06: 30 Dextrose (D50w Syringe) 25 ml Q15M PRN IV DECREASED GLUCOSE; Start 01/05/17 at 06:30 Dextrose (D50w Syringe) 50 ml Q15M PRN IV DECREASED GLUCOSE; Start 01/05/17 at 06:30 Glucagon (Glucagen) 1 mg Q15M PRN IM DECREASED GLUCOSE; Start 01/05/17 at 06:30 Glucose (Glutose) 15 gm Q15M PRN BUCCAL DECREASED GLUCOSE; Start 01/05/17 at 06 :30 Thiamine HCl 100 mg 100 mg DAILY PO Last administered on 01/06/17 08:59; Admin Dose 100 MG; Start 01/05/17 at 14:30; Stop 01/09/17 at 14:29 Potassium Chloride/Dextrose (D5W + KCl 20 Meq) 1,000 ml @ 100 mls/hr Q10H IV Last administered on 01/06/17 07:37; Admin Dose 100 MLS/HR; Start 01/06/17 at 07:00 Dextrose (D50w Syringe) 50 ml Q15M PRN IV For BS 50 or less; Start 01/06/17 at 06:30 Dextrose (D50w Syringe) 25 ml Q15M PRN IV BS between 50-70; Start 01/06/17 at 06:30 Diagnostic Test (Pha) 1 ea 1 ea Q1H XX Last administered on 01/06/17 13:33; Admin Dose 1 EA; Start 01/06/17 at 06:30 Potassium Phosphate/Sodium Chloride (K Phos (Mm)/NS) 260 ml @ 43.333 mls/ hr ONCE ONCE IVPB Last administered on 01/06/17 11:54; Admin Dose 43.333 MLS/HR ; Start 01/06/17 at 11:30; Stop 01/06/17 at 17:29 Hydralazine HCl (Apresoline) 10 mg Q6H PRN IV SBP>160; Start 01/06/17 at 10:00 Pantoprazole (Protonix Iv) 40 mg DAILY@06 IV ; Start 01/07/17 at 06:00 NELSON MALLOY MD Jan 06, 2017 14:05
[2017-01-06] MEDS: INSULIN ASPART [NOVOLOG] 3 ML PEN SC SCH ×2 (17:22→20:32)
[2017-01-06] MEDS ORDERED: metFORMIN 500 MG TAB PO SCH (17:35)
[2017-01-06] MEDS: INSULIN GLARGINE [LANtus] 3 ML PEN SC SCH (20:31)
[2017-01-06] MEDS: ATORVASTATIN 20 MG TAB PO SCH (20:33)
[2017-01-07] VITALS (12 sets, daily range): BP systolic 111–152; BP diastolic 57–81; PULSE 86–120; RESP 18–19
[2017-01-07] MEDS: ACCU-CHEK XX SCH (02:52)
[2017-01-07] MEDS: D5W + KCL 20 MEQ 1,000 ML IV SCH ×2 (03:06→08:51)
[2017-01-07] MEDS: PANTOPRAZOLE 40 MG INJ IV SCH (06:01)
[2017-01-07 07:30] LABS: BASOPHILS % 0.1 % (0.0-2.0); EOSINOPHILS % 0.3 % (0.0-7.0); HEMATOCRIT 34.9 % (37.0-47.0); HEMOGLOBIN 12.2 g/dl (12.0-16.0); LYMPHOCYTES # 1.8 10^3/ul (0.8-2.9); LYMPHOCYTES % 23.9 % (15.0-51.0); MEAN CORPUSCULAR HEMOGLOBIN 31.3 pg (29.0-33.0); MEAN CORPUSCULAR VOLUME 89.5 fl (82.0-101.0); MEAN PLATELET VOLUME 9.8 fl (7.4-10.4); MONOCYTE # 0.8 10^3/ul (0.3-0.9); MONOCYTES % 10.4 % (0.0-11.0); NEUTROPHIL # 4.9 10^3/ul (1.6-7.5); PLATELET COUNT 160 10^3/UL (140-415); RED CELL DISTRIBUTION WIDTH 12.2 % (11.5-14.5); WHITE BLOOD COUNT 7.6 10^3/ul (4.8-10.8)
[2017-01-07 08:03] LABS: MAGNESIUM 1.6 mg/dl (1.7-2.5); PHOSPHORUS 1.5 mg/dl (2.5-4.9)
[2017-01-07 08:04] LABS: ALBUMIN 2.8 g/dl (3.3-4.9); ALBUMIN/GLOBULIN RATIO 1.33; CALCIUM 8.2 mg/dl (8.4-10.2); CREATININE 0.42 mg/dl (0.44-1.00); POTASSIUM 3.5 mmol/L (3.5-5.1); TOTAL PROTEIN 4.9 g/dl (6.1-8.1)
[2017-01-07] MEDS: THIAMINE 100 MG TAB PO SCH (08:48)
[2017-01-07] MEDS: INSULIN ASPART [NOVOLOG] 3 ML PEN SC SCH ×6 (08:51→20:21)
--- NOTE | 2017-01-07 11:57 | PN ---
Date/Time of Note Date/Time of Note DATE: 01/07/17 TIME: 11:55 Assessment/Plan VTE Prophylaxis VTE Prophylaxis Intervention: SCD's Lines/Catheters IV Catheter Type (from [facility]): [facility] Urinary Cath still in place: Yes Reason Cath still needed: other (indicate) Assessment/Plan Chief Complaint/Hosp Course 1. Diabetic ketoacidosis. S/P insulin drip. Being followed by endocrinology. Etiology for DKA could be probably secondary to medication noncompliance. Shirley cultures have been negative. No evidence of any underlying infectious process. 2. Diabetes mellitus. Probably type II. Hemoglobin A1c 10.6. Glycemic management as per endocrinology. 3. Acute encephalopathy. Probably toxic metabolic. The patient's mental status have been improving. Monitor. 4. Dyslipidemia. Elevated total cholesterol and suboptimal LDL. Continue the patient on statins. 5. Hypomagnesemia. Replete. 6. Hypophosphatemia. Replete. 7. Fluids, electrolytes, and nutrition. Carbohydrate controlled diet 8. DVT prophylaxis. Bilateral sequential compression devices. 9. Gastrointestinal prophylaxis. Proton pump inhibitors. 10. Plan. Glycemic management as per endocrinology. Replete phosphorus and magnesium. Obtain physical therapy evaluation. Discontinue Zuluaga catheter. Case discussed with Dr. Emmanuel. Problems: Subjective 24 Hr Interval Summary Free Text/Dictation The patient is awake and alert today. Blood sugars running high Exam/Review of Systems Vital Signs Vitals Vital Signs Date Time Temp Pulse Resp B/P Pulse Ox O2 Delivery O2 Flow Rate FiO2 01/07/17 11:38 98.0 120 18 118/66 98 01/06/17 23:48 Room Air Intake and Output 01/06/17 01/06/17 01/07/17 14:59 22:59 06:59 Intake Total 975.59 ml 720 ml 1050 ml Output Total 800 ml 300 ml 2200 ml Balance 175.59 ml 420 ml -1150 ml Exam General: Adequately build 81 year-old female lying in bed in no apparent distress. HEENT: Normocephalic, atraumatic. Eyes: Anicteric sclerae, conjunctivae clear. ENT: Nasal septum midline, oral mucosa moist. Neck supple, no JVD noticed. Respiratory: Bilaterally clear breath sounds. No use of accessory muscles of respiration. No adventitious breath sounds. Cardiovascular: S1, S2 heard. No murmurs or gallops. Abdomen: Soft, nontender, and nondistended. Bowel sounds positive in all 4 quadrants. Genitourinary: Deferred. Extremities: No cyanosis, no clubbing, no edema. Peripheral pulses palpable. Neurologic: Cranial nerves II through XII grossly intact. The patient is awake and alert. Oriented 3. Skin: Normal skin turgor. No skin rashes. Results Result Diagram: 01/07/17 0715 01/07/17 0715 Results 24 hrs Laboratory Tests Test 01/06/17 12:02 01/06/17 12:51 01/06/17 13:25 01/06/17 13:28 Bedside Glucose 96 78 152 Sodium Level 130 L Potassium Level 4.0 Chloride Level 108 Carbon Dioxide Level 17 L Anion Gap 9 Blood Urea Nitrogen 13 Creatinine 0.43 L Glucose Level 121 # Calcium Level 8.1 L Test 01/06/17 17:20 01/06/17 20:29 01/07/17 01:47 01/07/17 07:15 Bedside Glucose 193 216 244 H White Blood Count 7.6 # Red Blood Count 3.90 L Hemoglobin 12.2 Hematocrit 34.9 L Mean Corpuscular Volume 89.5 Mean Corpuscular Hemoglobin 31.3 Mean Corpuscular Hemoglobin Concent 35.0 Red Cell Distribution Width 12.2 Platelet Count 160 Mean Platelet Volume 9.8 Neutrophils % 65.0 Lymphocytes % 23.9 Monocytes % 10.4 Eosinophils % 0.3 Basophils % 0.1 Nucleated Red Blood Cells % 0.0 Neutrophils # 4.9 Lymphocytes # 1.8 Monocytes # 0.8 Eosinophils # 0.0 Basophils # 0.0 Nucleated Red Blood Cells # 0.0 Sodium Level 131 L Potassium Level 3.5 Chloride Level 100 Carbon Dioxide Level 20 L Anion Gap 15 Blood Urea Nitrogen 11 Creatinine 0.42 L Glucose Level 317 #H Calcium Level 8.2 L Phosphorus Level 1.5 L Magnesium Level 1.6 L Total Bilirubin 1.0 Direct Bilirubin 0.00 Indirect Bilirubin 1.0 Aspartate Amino Transf (AST/SGOT) 19 Alanine Aminotransferase (ALT/SGPT) 29 Alkaline Phosphatase 48 Total Protein 4.9 L Albumin 2.8 L Globulin 2.10 Albumin/Globulin Ratio 1.33 Test 01/07/17 08:39 Bedside Glucose 329 H Medications Medications Current Medications Ondansetron HCl (Zofran Inj) 4 mg Q6H PRN IV NAUSEA AND/OR VOMITING; Start at 04:30 Miscellaneous Information 1 ea NOTE XX ; Start 01/05/17 at 06:30 Glucose (Glutose) 15 gm Q15M PRN PO DECREASED GLUCOSE; Start 01/05/17 at 06:30 Glucose (Glutose) 22.5 gm Q15M PRN PO DECREASED GLUCOSE; Start 01/05/17 at 06: 30 Dextrose (D50w Syringe) 25 ml Q15M PRN IV DECREASED GLUCOSE; Start 01/05/17 at 06:30 Dextrose (D50w Syringe) 50 ml Q15M PRN IV DECREASED GLUCOSE; Start 01/05/17 at 06:30 Glucagon (Glucagen) 1 mg Q15M PRN IM DECREASED GLUCOSE; Start 01/05/17 at 06:30 Glucose (Glutose) 15 gm Q15M PRN BUCCAL DECREASED GLUCOSE; Start 01/05/17 at 06 :30 Thiamine HCl 100 mg 100 mg DAILY PO Last administered on 01/07/17 08:48; Admin Dose 100 MG; Start 01/05/17 at 14:30; Stop 01/09/17 at 14:29 Potassium Chloride/Dextrose (D5W + KCl 20 Meq) 1,000 ml @ 100 mls/hr Q10H IV Last administered on 01/07/17 08:51; Admin Dose 100 MLS/HR; Start 01/06/17 at 07 :00 Dextrose (D50w Syringe) 50 ml Q15M PRN IV For BS 50 or less; Start 01/06/17 at 06:30 Dextrose (D50w Syringe) 25 ml Q15M PRN IV BS between 50-70; Start 01/06/17 at 06:30 Hydralazine HCl (Apresoline) 10 mg Q6H PRN IV SBP>160; Start 01/06/17 at 10:00 Pantoprazole (Protonix Iv) 40 mg DAILY@06 IV Last administered on 01/07/17 06: 01; Admin Dose 40 MG; Start 01/07/17 at 06:00 Diagnostic Test (Pha) (Accu-Chek) 1 ea 02 XX Last administered on 01/07/17 02: 52; Admin Dose 1 EA; Start 01/07/17 at 02:00 Atorvastatin Calcium (Lipitor) 20 mg HS PO Last administered on 01/06/17 20:33 ; Admin Dose 20 MG; Start 01/06/17 at 21:00 Insulin Glargine (Lantus) 14 unit QHS SC ; Start 01/07/17 at 21:00 Linagliptin (Tradjenta) 5 mg DAILY PO ; Start 01/07/17 at 10:00 MINH FOX NP Jan 07, 2017 11:56
[2017-01-07] MEDS ORDERED: MAGNESIUM SULFATE 2 GM/50 ML 50 ML IVPB ONE (12:00)
[2017-01-07] MEDS: LINAGLIPTIN 5 MG TABLET PO SCH (12:23)
--- NOTE | 2017-01-07 12:36 | CONS ---
Date/Time of Note Date/Time of Note DATE: 01/07/17 TIME: 12:29 Assessment/Plan Assessment/Plan Problems: (1) DKA (diabetic ketoacidoses) Status: Resolved Qualifiers: Diabetes mellitus type: other specified (including JAIRON) Diabetes mellitus complication detail: without coma Qualified Code: E13.10 - Diabetic ketoacidosis without coma associated with other specified diabetes mellitus (2) Hypophosphatemia Status: Acute Comment: Primary team replacing (3) Hypomagnesemia Status: Acute Comment: Primary team replacing (4) Diabetes mellitus type 2 in nonobese Status: Chronic Comment: Glucose profoundly out of control (OOC) since discontinuing insulin drip last night. Pt. received lantus 10 units last night and metformin 500 mg po x 1 last night and DM remains OOC. Pt. w/ poor insight into her disease. Does not want to take metformin b/c she heard it was bad. Wants to go home today even though her glycemic control is poor. Pt. obviously cannot continue on SGLT2i due to DKA. Will double metformin to 500 mg bid and reassure pt. of its safety in normal renal function. Will increase lantus and add weight-based meal-time insulin. Will add linagliptin. Pt. is not ready for d/c. Needs improved glycemic control and DM education to teach her to use insulin. Consultation Date/Type/Reason Admit Date/Time Jan 05, 2017 at 04:29 Initial Consult Date 01/05/17 Type of Consultation: Endocrinology Reason for Consultation DKA Referring Provider: WAN YI 24 HR Interval Summary Constitutional: improved (wants to go home), no complaints Detailed Summary Respiratory: no complaints Cardiovascular: no complaints Gastrointestinal: no complaints Genitourinary: no complaints Musculoskeletal: no complaints Neurologic: no complaints Exam/Review of Systems Vital Signs Vitals VS - Last 72 Hours, by Label Date Time Temp Pulse Resp B/P Pulse Ox O2 Delivery O2 Flow Rate FiO2 01/07/17 12:01 120 01/07/17 11:38 98.0 120 18 118/66 98 01/07/17 08:05 86 01/07/17 07:47 98.0 114 18 141/75 98 01/07/17 04:29 120 01/07/17 04:00 98.8 83 18 152/81 96 01/07/17 00:23 91 01/06/17 23:48 99.1 118 18 120/67 96 Room Air 01/06/17 22:16 92 01/06/17 20:04 89 01/06/17 20:00 98.5 88 24 155/79 98 Room Air 01/06/17 19:30 90 22 151/84 97 Room Air 01/06/17 19:00 92 21 146/80 98 Room Air 01/06/17 18:30 96 19 144/82 97 Room Air 01/06/17 18:00 98.3 92 16 135/72 98 Room Air 01/06/17 17:30 89 20 140/79 97 Room Air 01/06/17 16:30 96 24 146/79 95 Room Air 01/06/17 16:00 118 01/06/17 16:00 99.0 118 18 135/88 97 Room Air 01/06/17 15:30 91 19 153/80 96 Room Air 01/06/17 15:00 93 18 138/78 98 Room Air 01/06/17 14:30 93 20 147/82 97 Room Air 01/06/17 14:00 95 21 159/81 96 Room Air 01/06/17 13:30 95 23 138/70 98 Room Air 01/06/17 13:00 108 26 174/91 94 Room Air 01/06/17 12:00 98.3 99 19 134/79 97 Room Air 01/06/17 12:00 101 01/06/17 11:00 95 20 141/73 95 Room Air 01/06/17 10:00 92 18 149/72 96 Room Air 01/06/17 09:00 95 20 137/85 97 Room Air 01/06/17 08:00 97.9 99 21 146/83 96 Room Air 01/06/17 08:00 95 01/06/17 07:00 90 16 159/84 95 Room Air 01/06/17 06:00 92 16 160/81 97 Room Air 01/06/17 05:00 95 18 154/77 98 Room Air 01/06/17 04:00 98.4 92 17 157/76 96 Room Air 01/06/17 04:00 86 01/06/17 03:00 91 16 142/65 96 Room Air 01/06/17 02:00 93 16 138/71 99 Room Air 01/06/17 01:00 93 19 145/78 98 Room Air 01/06/17 00:00 98.5 92 24 121/67 96 Room Air 01/06/17 00:00 90 01/05/17 23:00 90 27 133/71 96 Room Air 01/05/17 22:00 120 19 118/80 95 Room Air 01/05/17 21:00 113 25 145/73 98 Room Air 01/05/17 20:00 101 19 139/105 98 Room Air 01/05/17 20:00 97 01/05/17 19:00 98.2 100 15 141/65 95 Room Air 01/05/17 17:00 112 14 163/76 97 Room Air 01/05/17 16:00 98.2 114 30 136/62 96 Room Air 01/05/17 16:00 107 01/05/17 15:00 99 22 138/70 100 Room Air 01/05/17 14:00 17 129/83 99 Room Air 01/05/17 13:00 101 15 133/63 98 Room Air 01/05/17 12:45 104 14 98 Room Air 01/05/17 12:30 105 20 99 Room Air 01/05/17 12:15 97.6 108 20 98 Room Air 01/05/17 12:00 106 01/05/17 11:30 110 18 140/71 100 Room Air 01/05/17 10:30 98.4 115 18 135/67 100 Room Air 01/05/17 09:30 112 18 161/84 100 Room Air 01/05/17 08:30 114 18 146/71 100 Room Air 01/05/17 07:30 116 18 122/65 100 Room Air 01/05/17 06:45 98.1 118 18 136/66 100 Room Air 01/05/17 06:30 117 16 138/66 100 Room Air 01/05/17 05:00 118 16 155/71 98 Room Air 01/05/17 03:45 98.2 124 16 128/67 99 Room Air 01/05/17 01:46 128 16 130/70 98 Room Air 01/05/17 00:15 98.1 123 20 124/67 99 Room Air 01/04/17 21:50 98.7 130 18 140/78 98 Vital Signs Date Time Temp Pulse Resp B/P Pulse Ox O2 Delivery O2 Flow Rate FiO2 01/07/17 12:01 120 01/07/17 11:38 98.0 18 118/66 98 01/06/17 23:48 Room Air Intake and Output 01/06/17 01/06/17 01/07/17 15:00 23:00 07:00 Intake Total 1215.59 ml 480 ml 1050 ml Output Total 775 ml 225 ml 2200 ml Balance 440.59 ml 255 ml -1150 ml Exam Constitutional: alert, oriented, well developed Psych: nl mood/affect, no complaints Respiratory: clear to auscultation, normal air movement Cardiovascular: nl pulses, regular rate and rhythm, No edema, No murmurs/extra sounds, No rub Gastrointestinal: bowel sounds, nl liver, spleen, non-tender, soft, No mass, No rebound or guarding Musculoskeletal: nl extremities to inspection Extremities: normal pulses, No clubbing, No cyanosis, No edema Neurological: [employer] II-XII intact, nl mental status, nl speech, nl strength Additional Comments Bedside Glucose - 72 Hours Test 01/05/17 05:16 01/05/17 07:04 01/05/17 07:58 01/05/17 08:57 Bedside Glucose 286mg/dL (70-220) H 305mg/dL (70-220) H 229mg/dL (70-220) H 202mg/dL (70-220) Test 01/05/17 09:56 01/05/17 10:55 01/05/17 11:50 01/05/17 12:35 Bedside Glucose 181mg/dL (70-220) 235mg/dL (70-220) H 211mg/dL (70-220) 217mg/dL (70-220) Test 01/05/17 13:42 01/05/17 14:34 01/05/17 15:34 01/05/17 17:35 Bedside Glucose 190mg/dL (70-220) 211mg/dL (70-220) 162mg/dL (70-220) 128mg/dL (70-220) Test 01/05/17 18:27 01/05/17 19:34 01/05/17 20:42 01/05/17 21:03 Bedside Glucose 110mg/dL (70-220) 124mg/dL (70-220) 108mg/dL (70-220) 93mg/dL (70-220) Test 01/05/17 21:43 01/05/17 22:45 01/05/17 23:41 01/06/17 00:42 Bedside Glucose 108mg/dL (70-220) 121mg/dL (70-220) 114mg/dL (70-220) 116mg/dL (70-220) Test 01/06/17 01:31 01/06/17 02:47 01/06/17 05:38 01/06/17 06:35 Bedside Glucose 104mg/dL (70-220) 107mg/dL (70-220) 186mg/dL (70-220) 182mg/dL (70-220) Test 01/06/17 07:33 01/06/17 08:38 01/06/17 09:38 01/06/17 10:49 Bedside Glucose 172mg/dL (70-220) 141mg/dL (70-220) 172mg/dL (70-220) 125mg/dL (70-220) Test 01/06/17 11:44 01/06/17 12:02 01/06/17 12:51 01/06/17 13:28 Bedside Glucose 120mg/dL (70-220) 96mg/dL (70-220) 78mg/dL (70-220) 152mg/dL (70-220) Test 01/06/17 17:20 01/06/17 20:29 01/07/17 01:47 01/07/17 08:39 Bedside Glucose 193mg/dL (70-220) 216mg/dL (70-220) 244mg/dL (70-220) H 329mg/dL (70-220) H Results Result Diagram: 01/07/17 0715 01/07/17 0715 Results 24 hrs Laboratory Tests Test 01/06/17 12:51 01/06/17 13:25 01/06/17 13:28 01/06/17 17:20 Bedside Glucose 78 152 193 Sodium Level 130 L Potassium Level 4.0 Chloride Level 108 Carbon Dioxide Level 17 L Anion Gap 9 Blood Urea Nitrogen 13 Creatinine 0.43 L Glucose Level 121 # Calcium Level 8.1 L Test 01/06/17 20:29 01/07/17 01:47 01/07/17 07:15 01/07/17 08:39 Bedside Glucose 216 244 H 329 H White Blood Count 7.6 # Red Blood Count 3.90 L Hemoglobin 12.2 Hematocrit 34.9 L Mean Corpuscular Volume 89.5 Mean Corpuscular Hemoglobin 31.3 Mean Corpuscular Hemoglobin Concent 35.0 Red Cell Distribution Width 12.2 Platelet Count 160 Mean Platelet Volume 9.8 Neutrophils % 65.0 Lymphocytes % 23.9 Monocytes % 10.4 Eosinophils % 0.3 Basophils % 0.1 Nucleated Red Blood Cells % 0.0 Neutrophils # 4.9 Lymphocytes # 1.8 Monocytes # 0.8 Eosinophils # 0.0 Basophils # 0.0 Nucleated Red Blood Cells # 0.0 Sodium Level 131 L Potassium Level 3.5 Chloride Level 100 Carbon Dioxide Level 20 L Anion Gap 15 Blood Urea Nitrogen 11 Creatinine 0.42 L Glucose Level 317 #H Calcium Level 8.2 L Phosphorus Level 1.5 L Magnesium Level 1.6 L Total Bilirubin 1.0 Direct Bilirubin 0.00 Indirect Bilirubin 1.0 Aspartate Amino Transf (AST/SGOT) 19 Alanine Aminotransferase (ALT/SGPT) 29 Alkaline Phosphatase 48 Total Protein 4.9 L Albumin 2.8 L Globulin 2.10 Albumin/Globulin Ratio 1.33 Medications Medications Current Medications Ondansetron HCl (Zofran Inj) 4 mg Q6H PRN IV NAUSEA AND/OR VOMITING; Start at 04:30 Miscellaneous Information 1 ea NOTE XX ; Start 01/05/17 at 06:30 Glucose (Glutose) 15 gm Q15M PRN PO DECREASED GLUCOSE; Start 01/05/17 at 06:30 Glucose (Glutose) 22.5 gm Q15M PRN PO DECREASED GLUCOSE; Start 01/05/17 at 06: 30 Dextrose (D50w Syringe) 25 ml Q15M PRN IV DECREASED GLUCOSE; Start 01/05/17 at 06:30 Dextrose (D50w Syringe) 50 ml Q15M PRN IV DECREASED GLUCOSE; Start 01/05/17 at 06:30 Glucagon (Glucagen) 1 mg Q15M PRN IM DECREASED GLUCOSE; Start 01/05/17 at 06:30 Glucose (Glutose) 15 gm Q15M PRN BUCCAL DECREASED GLUCOSE; Start 01/05/17 at 06 :30 Thiamine HCl 100 mg 100 mg DAILY PO Last administered on 01/07/17t 08:48; Admin Dose 100 MG; Start 01/05/17 at 14:30; Stop 01/09/17 at 14:29 Potassium Chloride/Dextrose (D5W + KCl 20 Meq) 1,000 ml @ 100 mls/hr Q10H IV Last administered on 01/07/17 08:51; Admin Dose 100 MLS/HR; Start 01/06/17 at 07 :00 Dextrose (D50w Syringe) 50 ml Q15M PRN IV For BS 50 or less; Start 01/06/17 at 06:30 Dextrose (D50w Syringe) 25 ml Q15M PRN IV BS between 50-70; Start 01/06/17 at 06:30 Hydralazine HCl (Apresoline) 10 mg Q6H PRN IV SBP>160; Start 01/06/17 at 10:00 Pantoprazole (Protonix Iv) 40 mg DAILY@06 IV Last administered on 01/07/17 06: 01; Admin Dose 40 MG; Start 01/07/17 at 06:00 Diagnostic Test (Pha) (Accu-Chek) 1 ea 02 XX Last administered on 01/07/17 02: 52; Admin Dose 1 EA; Start 01/07/17 at 02:00 Atorvastatin Calcium (Lipitor) 20 mg HS PO Last administered on 01/06/17 20:33 ; Admin Dose 20 MG; Start 01/06/17 at 21:00 Insulin Glargine (Lantus) 14 unit QHS SC ; Start 01/07/17 at 21:00 Linagliptin 5 mg 5 mg DAILY PO ; Start 01/07/17 at 10:00 Magnesium Sulfate 50 ml @ 25 mls/hr ONCE ONCE IVPB ; Start 01/07/17 at 12:00; Stop 01/07/17 at 13:59 Sodium Phosphate/ Sodium Chloride (Sodium Phosphate/NS) 260 ml @ 43.333 mls/ hr ONCE ONCE IVPB ; Start 01/07/17 at 14:00; Stop 01/07/17 at 19:59 SHAYNE THOMAS MD Jan 07, 2017 12:36
[2017-01-07 13:12] LABS: CALCIUM 8.6 mg/dl (8.4-10.2); CREATININE 0.5 mg/dl (0.44-1.00); POTASSIUM 3.8 mmol/L (3.5-5.1)
[2017-01-07] MEDS ORDERED: SODIUM PHOSPHATE 30 MMOL in SOD CHLORIDE 0.9% 250 ML IVPB ONE (14:00)
[2017-01-07] MEDS: metFORMIN 500 MG TAB PO SCH (17:22)
[2017-01-07] MEDS: ATORVASTATIN 20 MG TAB PO SCH (20:25)
[2017-01-07] MEDS ORDERED: INSULIN GLARGINE [LANtus] 3 ML PEN SC SCH (21:00)
[2017-01-08] VITALS (11 sets, daily range): BP systolic 122–127; BP diastolic 59–73; PULSE 74–110; RESP 15–19
[2017-01-08] MEDS: ACCU-CHEK XX SCH (02:04)
[2017-01-08] MEDS: PANTOPRAZOLE 40 MG INJ IV SCH (05:52)
[2017-01-08 06:56] LABS: BASOPHILS % 0.1 % (0.0-2.0); EOSINOPHILS # 0.2 10^3/ul (0.0-0.5); EOSINOPHILS % 1.9 % (0.0-7.0); HEMATOCRIT 35.1 % (37.0-47.0); HEMOGLOBIN 11.8 g/dl (12.0-16.0); LYMPHOCYTES # 2.6 10^3/ul (0.8-2.9); LYMPHOCYTES % 32.3 % (15.0-51.0); MEAN CORPUSCULAR HEMOGLOBIN 30.8 pg (29.0-33.0); MEAN CORPUSCULAR HGB CONC 33.6 g/dl (32.0-37.0); MEAN CORPUSCULAR VOLUME 91.6 fl (82.0-101.0); MONOCYTE # 0.8 10^3/ul (0.3-0.9); MONOCYTES % 10.2 % (0.0-11.0); NEUTROPHIL # 4.4 10^3/ul (1.6-7.5); NEUTROPHILS % 54.4 % (39.0-77.0); PLATELET COUNT 161 10^3/UL (140-415); RED BLOOD COUNT 3.83 10^6/ul (4.20-5.40); RED CELL DISTRIBUTION WIDTH 12.3 % (11.5-14.5); WHITE BLOOD COUNT 8.1 10^3/ul (4.8-10.8)
[2017-01-08 07:17] LABS: ADD SCAN DIFF NO
[2017-01-08 07:20] LABS: CALCIUM 8.3 mg/dl (8.4-10.2); CREATININE 0.43 mg/dl (0.44-1.00); POTASSIUM 3.1 mmol/L (3.5-5.1)
[2017-01-08 07:25] LABS: MAGNESIUM 1.9 mg/dl (1.7-2.5); PHOSPHORUS 2.7 mg/dl (2.5-4.9)
[2017-01-08] MEDS: THIAMINE 100 MG TAB PO SCH (08:38)
[2017-01-08] MEDS: metFORMIN 500 MG TAB PO SCH ×2 (08:38→17:05)
[2017-01-08] MEDS: LINAGLIPTIN 5 MG TABLET PO SCH (08:38)
[2017-01-08] MEDS: INSULIN ASPART [NOVOLOG] 3 ML PEN SC SCH ×7 (08:43→20:41)
[2017-01-08] MEDS ORDERED: POTASSIUM CHLORIDE (SR) 20 MEQ TAB PO STA (10:33)
--- NOTE | 2017-01-08 11:58 | CONS ---
Date/Time of Note Date/Time of Note DATE: 01/08/17 TIME: 11:56 Assessment/Plan Assessment/Plan Problems: (1) Diabetes mellitus type 2 in nonobese Status: Chronic Comment: Improved glycemic levels today but remains OOC. Increasing Lantus from 14 to 18 qhs and increasing Novolog from 7 to 9 qac. Cont. metformin 500 mg bid and tradjenta 5 mg/d. DM education tomorrow. Hopefully, if glucose in good control tomorrow and pt. does well w/ education, will be ready for d/c at that time. Consultation Date/Type/Reason Admit Date/Time Jan 05, 2017 at 04:29 Initial Consult Date 01/05/17 Type of Consultation: Endocrinology Reason for Consultation DKA Referring Provider: WAN YI 24 HR Interval Summary Constitutional: improved (wants to go home), no complaints Detailed Summary Respiratory: no complaints Cardiovascular: no complaints Gastrointestinal: no complaints Genitourinary: no complaints Musculoskeletal: no complaints Neurologic: no complaints Exam/Review of Systems Vital Signs Vitals VS - Last 72 Hours, by Label Date Time Temp Pulse Resp B/P Pulse Ox O2 Delivery O2 Flow Rate FiO2 01/08/17 08:00 74 01/08/17 07:51 97.0 92 18 127/73 98 01/08/17 04:15 82 01/08/17 03:21 98.0 80 19 127/62 96 01/08/17 00:01 89 01/07/17 23:22 98.0 88 19 111/57 96 01/07/17 20:14 91 01/07/17 19:26 98.1 95 19 124/65 94 01/07/17 17:37 98.0 90 18 120/59 98 01/07/17 16:05 86 01/07/17 12:01 120 01/07/17 11:38 98.0 120 18 118/66 98 01/07/17 08:05 86 01/07/17 07:47 98.0 114 18 141/75 98 01/07/17 04:29 120 01/07/17 04:00 98.8 83 18 152/81 96 01/07/17 00:23 91 01/06/17 23:48 99.1 118 18 120/67 96 Room Air 01/06/17 22:16 92 01/06/17 20:04 89 01/06/17 20:00 98.5 88 24 155/79 98 Room Air 01/06/17 19:30 90 22 151/84 97 Room Air 01/06/17 19:00 92 21 146/80 98 Room Air 01/06/17 18:30 96 19 144/82 97 Room Air 01/06/17 18:00 98.3 92 16 135/72 98 Room Air 01/06/17 17:30 89 20 140/79 97 Room Air 01/06/17 16:30 96 24 146/79 95 Room Air 01/06/17 16:00 118 01/06/17 16:00 99.0 118 18 135/88 97 Room Air 01/06/17 15:30 91 19 153/80 96 Room Air 01/06/17 15:00 93 18 138/78 98 Room Air 01/06/17 14:30 93 20 147/82 97 Room Air 01/06/17 14:00 95 21 159/81 96 Room Air 01/06/17 13:30 95 23 138/70 98 Room Air 01/06/17 13:00 108 26 174/91 94 Room Air 01/06/17 12:00 98.3 99 19 134/79 97 Room Air 01/06/17 12:00 101 01/06/17 11:00 95 20 141/73 95 Room Air 01/06/17 10:00 92 18 149/72 96 Room Air 01/06/17 09:00 95 20 137/85 97 Room Air 01/06/17 08:00 97.9 99 21 146/83 96 Room Air 01/06/17 08:00 95 01/06/17 07:00 90 16 159/84 95 Room Air 01/06/17 06:00 92 16 160/81 97 Room Air 01/06/17 05:00 95 18 154/77 98 Room Air 01/06/17 04:00 98.4 92 17 157/76 96 Room Air 01/06/17 04:00 86 01/06/17 03:00 91 16 142/65 96 Room Air 01/06/17 02:00 93 16 138/71 99 Room Air 01/06/17 01:00 93 19 145/78 98 Room Air 01/06/17 00:00 98.5 92 24 121/67 96 Room Air 01/06/17 00:00 90 01/05/17 23:00 90 27 133/71 96 Room Air 01/05/17 22:00 120 19 118/80 95 Room Air 01/05/17 21:00 113 25 145/73 98 Room Air 01/05/17 20:00 101 19 139/105 98 Room Air 01/05/17 20:00 97 01/05/17 19:00 98.2 100 15 141/65 95 Room Air 01/05/17 17:00 112 14 163/76 97 Room Air 01/05/17 16:00 98.2 114 30 136/62 96 Room Air 01/05/17 16:00 107 01/05/17 15:00 99 22 138/70 100 Room Air 01/05/17 14:00 17 129/83 99 Room Air 01/05/17 13:00 101 15 133/63 98 Room Air 01/05/17 12:45 104 14 98 Room Air 01/05/17 12:30 105 20 99 Room Air 01/05/17 12:15 97.6 108 20 98 Room Air 01/05/17 12:00 106 Vital Signs Date Time Temp Pulse Resp B/P Pulse Ox O2 Delivery O2 Flow Rate FiO2 01/08/17 08:00 74 01/08/17 07:51 97.0 18 127/73 98 01/06/17 23:48 Room Air Intake and Output 01/07/17 01/07/17 01/08/17 15:00 23:00 07:00 Intake Total 2050 ml Output Total 1100 ml Balance 950 ml Exam Constitutional: alert, oriented, well developed Respiratory: clear to auscultation, normal air movement Cardiovascular: nl pulses, regular rate and rhythm, No edema, No murmurs/extra sounds, No rub Gastrointestinal: bowel sounds, nl liver, spleen, non-tender, soft, No mass, No rebound or guarding Musculoskeletal: nl extremities to inspection Extremities: normal pulses, No clubbing, No cyanosis, No edema Neurological: ASSOCIATE FINANCIAL ANALYST II-XII intact, nl mental status, nl speech, nl strength Additional Comments Bedside Glucose - 72 Hours Test 01/05/17 12:35 01/05/17 13:42 01/05/17 14:34 01/05/17 15:34 Bedside Glucose 217mg/dL (70-220) 190mg/dL (70-220) 211mg/dL (70-220) 162mg/dL (70-220) Test 01/05/17 17:35 01/05/17 18:27 01/05/17 19:34 01/05/17 20:42 Bedside Glucose 128mg/dL (70-220) 110mg/dL (70-220) 124mg/dL (70-220) 108mg/dL (70-220) Test 01/05/17 21:03 01/05/17 21:43 01/05/17 22:45 01/05/17 23:41 Bedside Glucose 93mg/dL (70-220) 108mg/dL (70-220) 121mg/dL (70-220) 114mg/dL (70-220) Test 01/06/17 00:42 01/06/17 01:31 01/06/17 02:47 01/06/17 05:38 Bedside Glucose 116mg/dL (70-220) 104mg/dL (70-220) 107mg/dL (70-220) 186mg/dL (70-220) Test 01/06/17 06:35 01/06/17 07:33 01/06/17 08:38 01/06/17 09:38 Bedside Glucose 182mg/dL (70-220) 172mg/dL (70-220) 141mg/dL (70-220) 172mg/dL (70-220) Test 01/06/17 10:49 01/06/17 11:44 01/06/17 12:02 01/06/17 12:51 Bedside Glucose 125mg/dL (70-220) 120mg/dL (70-220) 96mg/dL (70-220) 78mg/dL (70-220) Test 01/06/17 13:28 01/06/17 17:20 01/06/17 20:29 01/07/17 01:47 Bedside Glucose 152mg/dL (70-220) 193mg/dL (70-220) 216mg/dL (70-220) 244mg/dL (70-220) H Test 01/07/17 08:39 01/07/17 12:21 01/07/17 17:21 01/07/17 20:18 Bedside Glucose 329mg/dL (70-220) H 346mg/dL (70-220) H 271mg/dL (70-220) H 183mg/dL (70-220) Test 01/08/17 01:55 01/08/17 08:33 Bedside Glucose 268mg/dL (70-220) H 253mg/dL (70-220) H Results Result Diagram: 01/08/17 0540 01/08/17 0540 Results 24 hrs Laboratory Tests Test 01/07/17 12:00 01/07/17 12:21 01/07/17 17:21 01/07/17 20:18 Sodium Level 129 L Potassium Level 3.8 Chloride Level 95 L Carbon Dioxide Level 23 Anion Gap 15 Blood Urea Nitrogen 12 Creatinine 0.50 Glucose Level 341 H Calcium Level 8.6 Bedside Glucose 346 H 271 H 183 Test 01/08/17 01:55 01/08/17 05:40 01/08/17 08:33 Bedside Glucose 268 H 253 H White Blood Count 8.1 Red Blood Count 3.83 L Hemoglobin 11.8 L Hematocrit 35.1 L Mean Corpuscular Volume 91.6 Mean Corpuscular Hemoglobin 30.8 Mean Corpuscular Hemoglobin Concent 33.6 Red Cell Distribution Width 12.3 Platelet Count 161 Mean Platelet Volume 10.0 Neutrophils % 54.4 Lymphocytes % 32.3 Monocytes % 10.2 Eosinophils % 1.9 Basophils % 0.1 Nucleated Red Blood Cells % 0.0 Neutrophils # 4.4 Lymphocytes # 2.6 Monocytes # 0.8 Eosinophils # 0.2 Basophils # 0.0 Nucleated Red Blood Cells # 0.0 Sodium Level 133 L Potassium Level 3.1 L Chloride Level 99 Carbon Dioxide Level 27 Anion Gap 10 # Blood Urea Nitrogen 16 Creatinine 0.43 L Glucose Level 234 #H Calcium Level 8.3 L Phosphorus Level 2.7 Magnesium Level 1.9 Medications Medications Current Medications Ondansetron HCl (Zofran Inj) 4 mg Q6H PRN IV NAUSEA AND/OR VOMITING; Start at 04:30 Miscellaneous Information 1 ea NOTE XX ; Start 01/05/17 at 06:30 Glucose (Glutose) 15 gm Q15M PRN PO DECREASED GLUCOSE; Start 01/05/17 at 06:30 Glucose (Glutose) 22.5 gm Q15M PRN PO DECREASED GLUCOSE; Start 01/05/17 at 06: 30 Dextrose (D50w Syringe) 25 ml Q15M PRN IV DECREASED GLUCOSE; Start 01/05/17 at 06:30 Dextrose (D50w Syringe) 50 ml Q15M PRN IV DECREASED GLUCOSE; Start 01/05/17 at 06:30 Glucagon (Glucagen) 1 mg Q15M PRN IM DECREASED GLUCOSE; Start 01/05/17 at 06:30 Glucose (Glutose) 15 gm Q15M PRN BUCCAL DECREASED GLUCOSE; Start 01/05/17 at 06 :30 Thiamine HCl (Vitamin B1) 100 mg DAILY PO Last administered on 01/08/17 08:38; Admin Dose 100 MG; Start 01/05/17 at 14:30; Stop 01/09/17 at 14:29 Dextrose (D50w Syringe) 50 ml Q15M PRN IV For BS 50 or less; Start 01/06/17 at 06:30 Dextrose (D50w Syringe) 25 ml Q15M PRN IV BS between 50-70; Start 01/06/17 at 06:30 Hydralazine HCl (Apresoline) 10 mg Q6H PRN IV SBP>160; Start 01/06/17 at 10:00 Pantoprazole (Protonix Iv) 40 mg DAILY@06 IV Last administered on 01/08/17 05: 52; Admin Dose 40 MG; Start 01/07/17 at 06:00 Diagnostic Test (Pha) (Accu-Chek) 1 ea 02 XX Last administered on 01/08/17 02: 04; Admin Dose 1 EA; Start 01/07/17 at 02:00 Atorvastatin Calcium (Lipitor) 20 mg HS PO Last administered on 01/07/17 20:25 ; Admin Dose 20 MG; Start 01/06/17 at 21:00 Linagliptin (Tradjenta) 5 mg DAILY PO Last administered on 01/08/17 08:38; Admin Dose 5 MG; Start 01/07/17 at 10:00 Insulin Glargine (Lantus) 18 unit QHS SC ; Start 01/08/17 at 21:00 SHAYNE THOMAS MD Jan 08, 2017 11:58
--- NOTE | 2017-01-08 12:52 | PN ---
Date/Time of Note Date/Time of Note DATE: 01/08/17 TIME: 12:50 Assessment/Plan VTE Prophylaxis VTE Prophylaxis Intervention: SCD's Lines/Catheters IV [facility] Saline Lock Urinary Cath still in place: No Assessment/Plan Chief Complaint/Hosp Course 1. Diabetic ketoacidosis. S/P insulin drip. Being followed by endocrinology. Etiology for DKA could be probably secondary to medication noncompliance. Shirley cultures have been negative. No evidence of any underlying infectious process. 2. Diabetes mellitus. Probably type II. Hemoglobin A1c 10.6. Glycemic management as per endocrinology. 3. Acute encephalopathy. Probably toxic metabolic. The patient's mental status have been improving. Monitor. 4. Dyslipidemia. Elevated total cholesterol and suboptimal LDL. Continue the patient on statins. 5. Hypokalemia. Replete. 6. Fluids, electrolytes, and nutrition. Carbohydrate controlled diet 7. DVT prophylaxis. Bilateral sequential compression devices. 8. Gastrointestinal prophylaxis. Proton pump inhibitors. 9. Plan. Glycemic management as per endocrinology. Replete potassium. Await physical therapy evaluation. Await diabetes education consult. Case discussed with Dr. Emmanuel. Problems: Subjective 24 Hr Interval Summary Free Text/Dictation Blood sugars were running high earlier. Exam/Review of Systems Vital Signs Vitals Vital Signs Date Time Temp Pulse Resp B/P Pulse Ox O2 Delivery O2 Flow Rate FiO2 01/08/17 12:22 98.0 78 18 123/69 98 01/06/17 23:48 Room Air Intake and Output 01/07/17 01/07/17 01/08/17 15:00 23:00 07:00 Intake Total 2050 ml Output Total 1100 ml Balance 950 ml Exam General: Adequately build 81 year-old female lying in bed in no apparent distress. HEENT: Normocephalic, atraumatic. Eyes: Anicteric sclerae, conjunctivae clear. ENT: Nasal septum midline, oral mucosa moist. Neck supple, no JVD noticed. Respiratory: Bilaterally clear breath sounds. No use of accessory muscles of respiration. No adventitious breath sounds. Cardiovascular: S1, S2 heard. No murmurs or gallops. Abdomen: Soft, nontender, and nondistended. Bowel sounds positive in all 4 quadrants. Genitourinary: Deferred. Extremities: No cyanosis, no clubbing, no edema. Peripheral pulses palpable. Neurologic: Cranial nerves II through XII grossly intact. The patient is awake and alert. Oriented 3. Skin: Normal skin turgor. No skin rashes. Results Result Diagram: 01/08/17 0540 01/08/17 0540 Results 24 hrs Laboratory Tests Test 01/07/17 17:21 01/07/17 20:18 01/08/17 01:55 01/08/17 05:40 Bedside Glucose 271 H 183 268 H White Blood Count 8.1 Red Blood Count 3.83 L Hemoglobin 11.8 L Hematocrit 35.1 L Mean Corpuscular Volume 91.6 Mean Corpuscular Hemoglobin 30.8 Mean Corpuscular Hemoglobin Concent 33.6 Red Cell Distribution Width 12.3 Platelet Count 161 Mean Platelet Volume 10.0 Neutrophils % 54.4 Lymphocytes % 32.3 Monocytes % 10.2 Eosinophils % 1.9 Basophils % 0.1 Nucleated Red Blood Cells % 0.0 Neutrophils # 4.4 Lymphocytes # 2.6 Monocytes # 0.8 Eosinophils # 0.2 Basophils # 0.0 Nucleated Red Blood Cells # 0.0 Sodium Level 133 L Potassium Level 3.1 L Chloride Level 99 Carbon Dioxide Level 27 Anion Gap 10 # Blood Urea Nitrogen 16 Creatinine 0.43 L Glucose Level 234 #H Calcium Level 8.3 L Phosphorus Level 2.7 Magnesium Level 1.9 Test 01/08/17 08:33 01/08/17 12:20 Bedside Glucose 253 H 199 Medications Medications Current Medications Ondansetron HCl (Zofran Inj) 4 mg Q6H PRN IV NAUSEA AND/OR VOMITING; Start at 04:30 Miscellaneous Information 1 ea NOTE XX ; Start 01/05/17 at 06:30 Glucose (Glutose) 15 gm Q15M PRN PO DECREASED GLUCOSE; Start 01/05/17 at 06:30 Glucose (Glutose) 22.5 gm Q15M PRN PO DECREASED GLUCOSE; Start 01/05/17 at 06: 30 Dextrose (D50w Syringe) 25 ml Q15M PRN IV DECREASED GLUCOSE; Start 01/05/17 at 06:30 Dextrose (D50w Syringe) 50 ml Q15M PRN IV DECREASED GLUCOSE; Start 01/05/17 at 06:30 Glucagon (Glucagen) 1 mg Q15M PRN IM DECREASED GLUCOSE; Start 01/05/17 at 06:30 Glucose (Glutose) 15 gm Q15M PRN BUCCAL DECREASED GLUCOSE; Start 01/05/17 at 06 :30 Thiamine HCl (Vitamin B1) 100 mg DAILY PO Last administered on 01/08/17 08:38; Admin Dose 100 MG; Start 01/05/17 at 14:30; Stop 01/09/17 at 14:29 Dextrose (D50w Syringe) 50 ml Q15M PRN IV For BS 50 or less; Start 01/06/17 at 06:30 Dextrose (D50w Syringe) 25 ml Q15M PRN IV BS between 50-70; Start 01/06/17 at 06:30 Hydralazine HCl (Apresoline) 10 mg Q6H PRN IV SBP>160; Start 01/06/17 at 10:00 Pantoprazole (Protonix Iv) 40 mg DAILY@06 IV Last administered on 01/08/17 05: 52; Admin Dose 40 MG; Start 01/07/17 at 06:00 Diagnostic Test (Pha) (Accu-Chek) 1 ea 02 XX Last administered on 01/08/17 02: 04; Admin Dose 1 EA; Start 01/07/17 at 02:00 Atorvastatin Calcium (Lipitor) 20 mg HS PO Last administered on 01/07/17 20:25 ; Admin Dose 20 MG; Start 01/06/17 at 21:00 Linagliptin (Tradjenta) 5 mg DAILY PO Last administered on 01/08/17 08:38; Admin Dose 5 MG; Start 01/07/17 at 10:00 Insulin Glargine (Lantus) 18 unit QHS SC ; Start 01/08/17 at 21:00 MINH FOX NP Jan 08, 2017 12:52
[2017-01-08] MEDS: ATORVASTATIN 20 MG TAB PO SCH (20:41)
[2017-01-08] MEDS ORDERED: INSULIN GLARGINE [LANtus] 3 ML PEN SC SCH (21:00)
[2017-01-09] VITALS (10 sets, daily range): BP systolic 125–131; BP diastolic 60–65; PULSE 75–102; RESP 15–20
[2017-01-09] MEDS: ACCU-CHEK XX SCH (01:59)
[2017-01-09] MEDS: PANTOPRAZOLE 40 MG INJ IV SCH (05:30)
[2017-01-09 06:46] LABS: BASOPHILS % 0.1 % (0.0-2.0); EOSINOPHILS # 0.2 10^3/ul (0.0-0.5); EOSINOPHILS % 2.1 % (0.0-7.0); HEMATOCRIT 33.7 % (37.0-47.0); LYMPHOCYTES # 2.6 10^3/ul (0.8-2.9); LYMPHOCYTES % 32.8 % (15.0-51.0); MEAN CORPUSCULAR HGB CONC 32.6 g/dl (32.0-37.0); MEAN CORPUSCULAR VOLUME 94.9 fl (82.0-101.0); MEAN PLATELET VOLUME 9.9 fl (7.4-10.4); MONOCYTE # 0.8 10^3/ul (0.3-0.9); MONOCYTES % 9.7 % (0.0-11.0); NEUTROPHIL # 4.4 10^3/ul (1.6-7.5); NEUTROPHILS % 55.1 % (39.0-77.0); PLATELET COUNT 135 10^3/UL (140-415); RED BLOOD COUNT 3.55 10^6/ul (4.20-5.40); RED CELL DISTRIBUTION WIDTH 12.2 % (11.5-14.5); WHITE BLOOD COUNT 8.1 10^3/ul (4.8-10.8)
[2017-01-09 07:11] LABS: CALCIUM 8.6 mg/dl (8.4-10.2); CREATININE 0.48 mg/dl (0.44-1.00); POTASSIUM 3.3 mmol/L (3.5-5.1)
[2017-01-09] MEDS: LINAGLIPTIN 5 MG TABLET PO SCH (08:09)
[2017-01-09] MEDS: THIAMINE 100 MG TAB PO SCH (08:09)
[2017-01-09] MEDS: metFORMIN 500 MG TAB PO SCH ×2 (08:09→17:12)
[2017-01-09] MEDS: INSULIN ASPART [NOVOLOG] 3 ML PEN SC SCH ×6 (08:11→21:00)
[2017-01-09 09:08] LABS: MAGNESIUM 1.6 mg/dl (1.7-2.5); PHOSPHORUS 2.7 mg/dl (2.5-4.9)
--- NOTE | 2017-01-09 14:12 | CONS ---
Date/Time of Note Date/Time of Note DATE: 01/09/17 TIME: 14:09 Assessment/Plan Assessment/Plan Chief Complaint/Hosp Course 81-year-old single female, information gathered from [facility] as a pharmacy is that her physician is Dr. Rancho Hurley. Her outpatient regimen has recently been switched from nateglinide 120 with each meal 2 Jardiance 10 mg a day. She is also on trazodone 50-200 mg nightly as needed. Problems: (1) Diabetes mellitus type 2 in nonobese Status: Chronic Comment: She would do best on single daily dose of insulin in addition to oral agent therapy. Her capacity to manage things has significant limitations due to a chronic organic brain syndrome. As such simplicity will be the fong to her success. Please note that her A1c when she came in was above 10. Our goal is 1 shot a day Lantus insulin with oral agents (2) Encephalopathy acute Status: Acute Comment: Improved to what I suspect is a baseline state. Her ability for self function has significant limitations. Consultation Date/Type/Reason Admit Date/Time Jan 05, 2017 at 04:29 Initial Consult Date 01/05/17 Type of Consultation: Endocrinology Reason for Consultation DKA in the setting of long-term diabetes mellitus type 2; encephalopathy Referring Provider: WAN YI 24 HR Interval Summary Free Text/Dictation Patient much more vibrant alert however her mental status still has significant limitations Exam/Review of Systems Vital Signs Vitals Vital Signs Date Time Temp Pulse Resp B/P Pulse Ox O2 Delivery O2 Flow Rate FiO2 01/09/17 12:00 102 01/09/17 07:25 97.6 20 127/64 96 01/06/17 23:48 Room Air Intake and Output 01/08/17 01/08/17 01/09/17 15:00 23:00 07:00 Intake Total 900 ml 500 ml Balance 900 ml 500 ml Exam Oriented times person and place; unable to delineate who her other doctors are although she was much closer this time Constitutional: alert Neck: non-tender, supple Respiratory: clear to auscultation, normal air movement Cardiovascular: nl pulses, regular rate and rhythm Gastrointestinal: nl liver, spleen, non-tender, soft Results Result Diagram: 01/09/17 0550 01/09/17 0550 Results 24 hrs Laboratory Tests Test 01/08/17 17:04 01/08/17 20:37 01/09/17 05:50 01/09/17 07:50 Bedside Glucose 177 107 244 H White Blood Count 8.1 Red Blood Count 3.55 L Hemoglobin 11.0 L Hematocrit 33.7 L Mean Corpuscular Volume 94.9 Mean Corpuscular Hemoglobin 31.0 Mean Corpuscular Hemoglobin Concent 32.6 Red Cell Distribution Width 12.2 Platelet Count 135 L Mean Platelet Volume 9.9 Neutrophils % 55.1 Lymphocytes % 32.8 Monocytes % 9.7 Eosinophils % 2.1 Basophils % 0.1 Nucleated Red Blood Cells % 0.0 Neutrophils # 4.4 Lymphocytes # 2.6 Monocytes # 0.8 Eosinophils # 0.2 Basophils # 0.0 Nucleated Red Blood Cells # 0.0 Sodium Level 136 Potassium Level 3.3 L Chloride Level 98 Carbon Dioxide Level 26 Anion Gap 15 Blood Urea Nitrogen 16 Creatinine 0.48 Glucose Level 211 Calcium Level 8.6 Phosphorus Level 2.7 Magnesium Level 1.6 L Test 01/09/17 12:11 Bedside Glucose 241 H Medications Medications Current Medications Ondansetron HCl (Zofran Inj) 4 mg Q6H PRN IV NAUSEA AND/OR VOMITING; Start at 04:30 Miscellaneous Information 1 ea NOTE XX ; Start 01/05/17 at 06:30 Glucose (Glutose) 15 gm Q15M PRN PO DECREASED GLUCOSE; Start 01/05/17 at 06:30 Glucose (Glutose) 22.5 gm Q15M PRN PO DECREASED GLUCOSE; Start 01/05/17 at 06: 30 Dextrose (D50w Syringe) 25 ml Q15M PRN IV DECREASED GLUCOSE; Start 01/05/17 at 06:30 Dextrose (D50w Syringe) 50 ml Q15M PRN IV DECREASED GLUCOSE; Start 01/05/17 at 06:30 Glucagon (Glucagen) 1 mg Q15M PRN IM DECREASED GLUCOSE; Start 01/05/17 at 06:30 Glucose (Glutose) 15 gm Q15M PRN BUCCAL DECREASED GLUCOSE; Start 01/05/17 at 06 :30 Thiamine HCl (Vitamin B1) 100 mg DAILY PO Last administered on 01/09/17t 08:09; Admin Dose 100 MG; Start 01/05/17 at 14:30; Stop 01/09/17 at 14:29 Dextrose (D50w Syringe) 50 ml Q15M PRN IV For BS 50 or less; Start 01/06/17 at 06:30 Dextrose (D50w Syringe) 25 ml Q15M PRN IV BS between 50-70; Start 01/06/17 at 06:30 Hydralazine HCl (Apresoline) 10 mg Q6H PRN IV SBP>160; Start 01/06/17 at 10:00 Pantoprazole (Protonix Iv) 40 mg DAILY@06 IV Last administered on 01/09/17 05: 30; Admin Dose 40 MG; Start 01/07/17 at 06:00 Diagnostic Test (Pha) (Accu-Chek) 1 ea 02 XX Last administered on 01/08/17 02: 04; Admin Dose 1 EA; Start 01/07/17 at 02:00 Atorvastatin Calcium (Lipitor) 20 mg HS PO Last administered on 01/08/17 20:41 ; Admin Dose 20 MG; Start 01/06/17 at 21:00 Linagliptin (Tradjenta) 5 mg DAILY PO Last administered on 01/09/17 08:09; Admin Dose 5 MG; Start 01/07/17 at 10:00 Insulin Glargine (Lantus) 10 unit QHS SC ; Start 01/09/17 at 21:00 NELSON MALLOY MD Jan 09, 2017 14:12
[2017-01-09] MEDS: NATEGLINIDE 120 MG TAB PO SCH (17:12)
--- NOTE | 2017-01-09 17:26 | PN ---
Date/Time of Note Date/Time of Note DATE: 01/09/17 TIME: 17:24 Assessment/Plan VTE Prophylaxis VTE Prophylaxis Intervention: SCD's Lines/Catheters [facility] Saline Lock Urinary Cath still in place: No Assessment/Plan Chief Complaint/Hosp Course A/P: 81 F with: 1. Diabetic ketoacidosis. S/P insulin drip. Being followed by endocrinology. Etiology for DKA could be probably secondary to medication noncompliance. Shirley cultures have been negative. No evidence of any underlying infectious process. - continue current meds, f/u endo rec's 2. Diabetes mellitus. Probably type II. Hemoglobin A1c 10.6. - Glycemic management as per endocrinology - started on 2 PO agents and Lantus today, monitor FS. 3. Acute encephalopathy. Probably toxic metabolic. The patient's mental status have been improving. Monitor. 4. Dyslipidemia. Elevated total cholesterol and suboptimal LDL. - Continue the patient on statins. 5. Hypokalemia. Replete. 6. Fluids, electrolytes, and nutrition. Carbohydrate controlled diet 7. DVT prophylaxis. Bilateral sequential compression devices. 8. Gastrointestinal prophylaxis. Proton pump inhibitors. 9. Plan - possible d/c in AM if FS improved. Problems: Subjective 24 Hr Interval Summary Free Text/Dictation Seen b y endo team and DM educator. No acute events overnight. Exam/Review of Systems Vital Signs Vitals Vital Signs Date Time Temp Pulse Resp B/P Pulse Ox O2 Delivery O2 Flow Rate FiO2 01/09/17 16:00 89 01/09/17 07:25 97.6 20 127/64 96 01/06/17 23:48 Room Air Intake and Output 01/08/17 01/08/17 01/09/17 15:00 23:00 07:00 Intake Total 900 ml 500 ml Balance 900 ml 500 ml Exam General: lying in bed in no apparent distress. HEENT: Normocephalic, atraumatic. Eyes: Anicteric sclerae, conjunctivae clear. ENT: Nasal septum midline, oral mucosa moist. Neck supple, no JVD noticed. Respiratory: Bilaterally clear breath sounds. No use of accessory muscles of respiration. No adventitious breath sounds. Cardiovascular: S1, S2 heard. No murmurs or gallops. Abdomen: Soft, nontender, and nondistended. Bowel sounds positive in all 4 quadrants. Extremities: No cyanosis, no clubbing, no edema. Peripheral pulses palpable. Neurologic: Cranial nerves II through XII grossly intact. The patient is awake and alert. Oriented 3. Skin: Normal skin turgor. No skin rashes. Results Result Diagram: 01/09/17 0550 01/09/17 0550 Results 24 hrs Laboratory Tests Test 01/08/17 20:37 01/09/17 05:50 01/09/17 07:50 01/09/17 12:11 Bedside Glucose 107 244 H 241 H White Blood Count 8.1 Red Blood Count 3.55 L Hemoglobin 11.0 L Hematocrit 33.7 L Mean Corpuscular Volume 94.9 Mean Corpuscular Hemoglobin 31.0 Mean Corpuscular Hemoglobin Concent 32.6 Red Cell Distribution Width 12.2 Platelet Count 135 L Mean Platelet Volume 9.9 Neutrophils % 55.1 Lymphocytes % 32.8 Monocytes % 9.7 Eosinophils % 2.1 Basophils % 0.1 Nucleated Red Blood Cells % 0.0 Neutrophils # 4.4 Lymphocytes # 2.6 Monocytes # 0.8 Eosinophils # 0.2 Basophils # 0.0 Nucleated Red Blood Cells # 0.0 Sodium Level 136 Potassium Level 3.3 L Chloride Level 98 Carbon Dioxide Level 26 Anion Gap 15 Blood Urea Nitrogen 16 Creatinine 0.48 Glucose Level 211 Calcium Level 8.6 Phosphorus Level 2.7 Magnesium Level 1.6 L Test 01/09/17 17:06 Bedside Glucose 255 H Medications Medications Current Medications Ondansetron HCl (Zofran Inj) 4 mg Q6H PRN IV NAUSEA AND/OR VOMITING; Start at 04:30 Miscellaneous Information 1 ea NOTE XX ; Start 01/05/17 at 06:30 Glucose (Glutose) 15 gm Q15M PRN PO DECREASED GLUCOSE; Start 01/05/17 at 06:30 Glucose (Glutose) 22.5 gm Q15M PRN PO DECREASED GLUCOSE; Start 01/05/17 at 06: 30 Dextrose (D50w Syringe) 25 ml Q15M PRN IV DECREASED GLUCOSE; Start 01/05/17 at 06:30 Dextrose (D50w Syringe) 50 ml Q15M PRN IV DECREASED GLUCOSE; Start 01/05/17 at 06:30 Glucagon (Glucagen) 1 mg Q15M PRN IM DECREASED GLUCOSE; Start 01/05/17 at 06:30 Glucose (Glutose) 15 gm Q15M PRN BUCCAL DECREASED GLUCOSE; Start 01/05/17 at 06 :30 Dextrose (D50w Syringe) 50 ml Q15M PRN IV For BS 50 or less; Start 01/06/17 at 06:30 Dextrose (D50w Syringe) 25 ml Q15M PRN IV BS between 50-70; Start 01/06/17 at 06:30 Hydralazine HCl (Apresoline) 10 mg Q6H PRN IV SBP>160; Start 01/06/17 at 10:00 Diagnostic Test (Pha) (Accu-Chek) 1 ea 02 XX Last administered on 01/08/17 02: 04; Admin Dose 1 EA; Start 01/07/17 at 02:00 Atorvastatin Calcium (Lipitor) 20 mg HS PO Last administered on 01/08/17 20:41 ; Admin Dose 20 MG; Start 01/06/17 at 21:00 Linagliptin (Tradjenta) 5 mg DAILY PO Last administered on 01/09/17 08:09; Admin Dose 5 MG; Start 01/07/17 at 10:00 Insulin Glargine (Lantus) 10 unit QHS SC ; Start 01/09/17 at 21:00 Pantoprazole (Protonix Tab) 40 mg DAILY@06 PO ; Start 01/10/17 at 06:00 CUCA MARTÍNEZ Jan 09, 2017 17:26
[2017-01-09] MEDS: ATORVASTATIN 20 MG TAB PO SCH (20:28)
[2017-01-09] MEDS ORDERED: INSULIN GLARGINE [LANtus] 3 ML PEN SC SCH (21:00)
[2017-01-10] VITALS (8 sets, daily range): BP systolic 142–169; BP diastolic 66–79; PULSE 72–80; RESP 16–20
[2017-01-10] MEDS: ACCU-CHEK XX SCH (02:13)
[2017-01-10] MEDS ORDERED: SOD CHLORIDE 0.9% 500 ML IV ONE (02:30)
[2017-01-10] MEDS ORDERED: PANTOPRAZOLE (EC) 40 MG TAB PO SCH (06:00)
[2017-01-10] MEDS: metFORMIN 500 MG TAB PO SCH (08:32)
[2017-01-10] MEDS: NATEGLINIDE 120 MG TAB PO SCH (08:32)
[2017-01-10] MEDS: LINAGLIPTIN 5 MG TABLET PO SCH (08:33)
[2017-01-10] MEDS: INSULIN ASPART [NOVOLOG] 3 ML PEN SC SCH (08:36)
--- NOTE | 2017-01-10 09:36 | PDOCDIS ---
Discharge Instructions DIAGNOSIS Discharge Diagnosis Diabetes mellitus type 2; DKA induced by SGLT2 drugs; organic brain syndrome; anemia CONDITION Patient Condition: Fair HOME CARE INSTRUCTIONS: Special Diet: carb controlled ACTIVITY: Activity Restrictions: Slowly Increase Activity Do not operate Machinery Do not operate Power Tool FOLLOW UP/APPOINTMENTS Follow-up Plan Follow-up with primary care physician Dr. Rancho Huffman in 1 week. NELSON MALLOY MD Jan 10, 2017 09:36
[2017-01-10] MEDS ORDERED: NATE120T PO (09:39)
[2017-01-10] MEDS ORDERED: METF500T PO (09:39)
[2017-01-10] MEDS ORDERED: ATOR20TA65 PO (09:39)
[2017-01-10] MEDS ORDERED: LINA5TAB PO (09:39)
--- NOTE | 2017-01-10 09:43 | DS ---
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 The patient currently has a decreased mental status for the past 3 days. She was noted to by tachycardic at home. On questioning the patient says she does not know why she is here but says she does not feel good. She will not elaborate on why she does not feel good. She says she is not in any pain. She told the ED physician she has not had any nausea vomiting diarrhea or headache or chest pain. As per the ED physcian, she is a extremely poor historian just lays there with minimal answering my questions but she is in no acute distress allergies: nkda meds: unknown Hospital Course A/P: 81 F with: 1. Diabetic ketoacidosis. S/P insulin drip. Being followed by endocrinology. Etiology for DKA could be probably secondary to medication noncompliance. Sihrley cultures have been negative. No evidence of any underlying infectious process. - continue current meds, f/u endo rec's 2. Diabetes mellitus. Probably type II. Hemoglobin A1c 10.6. - Glycemic management as per endocrinology - started on 2 PO agents and Lantus today, monitor FS. 3. Acute encephalopathy. Probably toxic metabolic. The patient's mental status have been improving. Monitor. 4. Dyslipidemia. Elevated total cholesterol and suboptimal LDL. - Continue the patient on statins. 5. Hypokalemia. Replete. 6. Fluids, electrolytes, and nutrition. Carbohydrate controlled diet 7. DVT prophylaxis. Bilateral sequential compression devices. 8. Gastrointestinal prophylaxis. Proton pump inhibitors. 9. Plan - possible d/c in AM if FS improved. 81-year-old single female who lives with platonic unrelated roommates. She was admitted with diabetic ketoacidosis after she had her outpatient medication regimen changed from a more standard routine to SGL T2 drug therapy. Please note this is a rare, consequence of using SGL T2 drugs and type II diabetics and is related to suppression of islet cell function. She had an elevated A1c at the time of admission. She was stabilized and brought off of the insulin drip. Her encephalopathy improved although she still has a certain degree of organic brain syndrome. She is now stabilized to the point where she is ready for discharge. Please note the patient flatly refuses to accept insulin therapy at home. She is able to reiterate to me the consequences of her decisions. As such we will be discharged home on a combination regimen which while not ideal will at least approximate as to where she should be. Is my personal opinion that she would do best to have an additional single daily dose of long-acting insulin such as Lantus or Basaglar or toujeo or Tresibal or Levemir at 12 units once a day. She is now discharged home in improved condition her rehabilitation potential is fair she has no known communicable diseases. She will follow-up with her regular physician Dr. Rancho Hurley in 1 week Home Meds Active Scripts Nateglinide* (Nateglinide*) 120 Mg Tablet, 120 MG PO AC MEALS for 30 Days, TAB Take at the start of meals for blood sugar/diabetes Prov:NELSON MALLOY MD 01/10/17 Metformin Hcl (Glucophage) 500 Mg Tablet, 1000 MG PO BID WITH MEALS for 30 Days , TAB For diabetes Prov:NELSON MALLOY MD 01/10/17 Linagliptin (TRADJENTA) 5 Mg Tablet, 5 MG PO DAILY for 30 Days, TAB For diabetes Prov:NELSON MALLOY MD 01/10/17 Atorvastatin Calcium (Atorvastatin Calcium) 20 Mg Tablet, 20 MG PO HS for 30 Days, TAB Prov:NELSON MALLOY MD 01/10/[address] Rancho Zaldivar Time spent on discharge: > 30 minutes Pending Labs Laboratory Tests Test 01/09/17 12:11 01/09/17 17:06 01/09/17 20:26 01/10/17 02:04 Bedside Glucose 241mg/dL (70-220) 255mg/dL (70-220) 186mg/dL (70-220) 266mg/dL (70-220) Test 01/10/17 08:30 Bedside Glucose 243mg/dL (70-220) NELSON MALLOY MD Jan 10, 2017 09:43
== END 2017-01-10 11:52 | disposition home or self-care (01) | DRG 637 ==
LOC: E/R 21:41 → ICU 01-05 04:29 → MS4 01-06 21:02
PROVIDERS: ADMIT Family Medicine; ATTEND Family Medicine
DX: E09.10 Drug or chemical induced diabetes mellitus with ketoacidosis without coma (principal); G92 Toxic encephalopathy; E86.0 Dehydration; E83.39 Other disorders of phosphorus metabolism; E83.42 Hypomagnesemia; D64.9 Anemia, unspecified; F09 Unspecified mental disorder due to known physiological condition; E78.5 Hyperlipidemia, unspecified; E87.6 Hypokalemia; T50.995A Adverse effect of other drugs, medicaments and biological substances, initial encounter; Z91.14 Patient's other noncompliance with medication regimen; Z87.891 Personal history of nicotine dependence
CPT/HCPCS: 36415; 36600; 71010; 74177; 80048; 80053; 80061; 80307; 81001; 82010; 82043; 82607; 82803; 82947; 82962; 83036; 83605; 83690; 83735; 84100; 84439; 84443; 84484; 85025; 85610; 85730; 86592; 86803; 87040; 87081; 87086; 87340; 93005; 96361; 96374; 96375; 97162; C9113; J0692; J1815; J3370; J3420; J3475; J3480; J7030; J7040; J7042; J7050; J7120; Q9967